=== PATIENT | female | born 1945 | race Caucasian/White ===

== ENCOUNTER 2023-12-23 15:47 | Emergency (ER) | payer MEDICARE, MEDICAID, SELFPAY ==
[2023-12-23 16:27] VITALS: BP 126/73; PULSE 102; RESP 18; TEMP 36.4; O2SAT 92
--- NOTE | 2023-12-23 18:36 | PC.NURSE ---
up to desk. stating he needs to get pt back to shelter. states her anxiety level is too high. pt assisted into vehicle
== END 2023-12-23 18:46 | disposition left against medical advice (07) ==
PROVIDERS: PCP Family Medicine
DX: R06.9 Unspecified abnormalities of breathing (principal)
CPT/HCPCS: 99199

== ENCOUNTER 2024-06-14 12:10 | Inpatient (IN) | payer MEDICARE, MEDICAID, SELFPAY ==
--- NOTE | ~2024-06-14 | XR_ITS ---
EXAMINATION: XR barium swallow modified DATE: 06/15/2024 14:07 INDICATION: Dysphagia. TECHNIQUE: The patient was given barium-containing material of multiple consistencies to swallow by t he speech pathologist while I performed fluoroscopy. Fluoroscopy exposure time was 1.1 minutes. The n umber of fluoroscopy images saved to the PACS was 1. Dose-area product was 0.779 Gy-cm^2. FINDINGS: There is reduced laryngeal elevation, reduced tongue base retraction, and laryngeal penetration. IMPRESSION: 1. Laryngeal penetration. 2. Please refer to the speech therapy report for recommendations. Reviewed, dictated and finalized at location A.
--- NOTE | ~2024-06-14 | XR_ITS ---
Portable chest x-ray Comparison: None Clinical History: Status post fall Findings: Lungs are clear, without focal consolidation or pleural effusion. Cardiomediastinal silho uette is unremarkable. Bones and soft tissues are unremarkable. Impression: Clear lungs. Reviewed, dictated and finalized at location M. Impression: Clear lungs.
--- NOTE | ~2024-06-14 | CT_ITS ---
CT head without contrast Indication: Head injury Technique: Serial scans were obtained through the brain without the administration of contrast. Dose reduction technique was used on this scan by utilizing automated exposure control and iterative recon struction technique. The dose-length product (DLP) was 605.33 mGy-cm. Findings: There is no evidence of intracranial hemorrhage, mass lesion, or acute infarct. The ventri cles and subarachnoid spaces are dilated, consistent with moderate to severe atrophy. Low attenuatio n regions are seen within the periventricular white matter bilaterally, likely representing changes f rom chronic microvascular ischemic disease. There is no evidence of edema, mass effect or midline sh ift. The visualized paranasal sinuses and mastoid air cells are clear. Focal soft tissue swelling no mariam in the frontal scalp. Probable acute left nasal bone fracture. Impression: No intracranial hemorrhage, mass, or acute infarct. Atrophy and chronic white matter changes, as above. Probable acute left nasal bone fracture. Reviewed, dictated and finalized at location . Impression: No intracranial hemorrhage, mass, or acute infarct. Atrophy and chronic white matter changes, as above. Probable acute left nasal bone fracture.
--- NOTE | ~2024-06-14 | CT_ITS ---
EXAMINATION: CT facial & cervical spine wo DATE: 06/14/2024 13:18 INDICATION: Head injury. TECHNIQUE: Computed tomography (CT) of the maxillofacial region and cervical spine was performed with out intravenous contrast. Automated exposure control and iterative reconstruction technique were empl oyed. The dose-length product was 141.26 mGy-cm. COMPARISON: None FINDINGS: MAXILLOFACIAL CT: There is frontal scalp soft tissue swelling. There are likely changes of ocular lens replacement surg eries. There are fractures of the nasal bones. There is rightward deviation of the nasal septum. Ther e is mild mucosal thickening in the paranasal sinuses. CERVICAL SPINE CT: There is mild scarring at the lung apices. There is 8 degrees dextrocurvature of cervical spine. Ther e is 2 mm retrolisthesis of C4 on C5. Vertebral body heights are normal. There is severely decreased disc height at C4-C5. There is interbody fusion at C5-C6. There is severely decreased disc height at C6-C7. The following disc levels are specifically discussed: C2-C3: There is no uncovertebral joint osteoarthritis. There is mild bilateral facet joint osteoarthr itis. There is no neural foraminal stenosis. There is no central canal stenosis. C3-C4: There is mild right and moderate left uncovertebral joint osteoarthritis. There is mild right and moderate left facet joint osteoarthritis. There is mild left neural foraminal stenosis. There is no central canal stenosis. C4-C5: There is severe bilateral uncovertebral joint osteoarthritis. There is severe bilateral facet joint osteoarthritis. There is mild bilateral neural foraminal stenosis. There is mild central canal stenosis. C5-C6: There is no uncovertebral joint hypertrophy. There is ankylosis of the facet joints without hy pertrophy. There is no neural foraminal stenosis. There is no central canal stenosis. C6-C7: There is ankylosis of the uncovertebral joints with moderate hypertrophy. There is moderate bi lateral facet joint osteoarthritis. There is mild bilateral neural foraminal stenosis. There is mild central canal stenosis. C7-T1: There is no uncovertebral joint osteoarthritis. There is moderate right and severe left facet joint osteoarthritis. There is mild left neural foraminal stenosis. There is no central canal stenosi s. IMPRESSION: 1. Fractures of the nasal bones. 2. Severe cervical spondylosis. Reviewed, dictated and finalized at location A.
[2024-06-14 12:10] VITALS: BP 117/67; TEMP 36.8
--- NOTE | 2024-06-14 12:36 | ECG_ITS ---
Test Date: 2024-06-14 12:38:00 Measurements Intervals [place] Rate: 77 P: 97 SC: 140 QRS: 67 QRSD: 93 T: 81 QT: 383 QTc: 434 Interpretive Statements SINUS RHYTHM WITHIN NORMAL LIMITS No previous ECG available for comparison Electronically Signed On 06-14-2024 15:06:20 CDT by Leonard Roman M.D.
--- NOTE | 2024-06-14 12:58 | ED.DIZZY ---
HPI - Dizziness General Chief Complaint: Fall Stated Complaint: fall - forehead & lip lac Time Seen by Provider: 06/14/24 12:12 Source: patient Limitations: dementia History of Present Illness HPI Narrative: This is a 78-year-old female with PMH of Alzheimer's dementia who [facility] for unwitnessed fall. Staff are unsure what happened or when the fall took place. They are unsure of any known LOC. The patient does not take blood thinners. She has a history of Alzheimer's and appears to be in her baseline which is alert oriented times 1-2. She has suffered a head injury with laceration to the upper lip and forehead but patient is unable to contribute meaningful history. Related Data Home Medications Medication Instructions Recorded Confirmed acetaminophen 300 mg-codeine 15 mg 1 tablet PO Q6H PRN Pain 06/14/24 06/14/24 tablet citalopram 10 mg tablet (Celexa) 10 mg PO DAILY 06/14/24 06/14/24 clonidine HCl 0.1 mg tablet 0.1 mg PO BID 06/14/24 06/14/24 divalproex 250 mg tablet,delayed 250 mg PO Q8H 06/14/24 06/14/24 release (Depakote) docusate sodium 100 mg tablet 100 mg PO DAILY 06/14/24 06/14/24 lactulose 10 gram/15 mL oral 15 ml PO QID PRN Constipation 06/14/24 06/14/24 solution levothyroxine 100 mcg tablet 100 mcg PO DAILY 06/14/24 06/14/24 megestrol 625 mg/5 mL (125 mg/mL) 5 ml PO DAILY 06/14/24 06/14/24 oral suspension mirtazapine 15 mg tablet 15 mg PO HS 06/14/24 06/14/24 Allergies Allergy/AdvReac Type Severity Reaction Status Date / Time aspirin Allergy Palpitation Verified 06/14/24 13:42 s azithromycin Allergy Hallucinati Verified 06/14/24 13:42 ng ciprofloxacin Allergy Unknown Verified 06/14/24 13:42 donepezil [From Aricept] Allergy Unknown Verified 06/14/24 13:42 memantine Allergy Gastrointestinal Verified 06/14/24 13:42 Upset meperidine Allergy Hallucinati Verified 06/14/24 13:42 ng pentazocine Allergy Unknown Verified 06/14/24 13:42 Review of Systems Review of Systems: All systems as dictated in [facility] Past Medical History Medical History Abnormality of gait Alzheimer's dementia Hypothyroidism (acquired) MDD (major depressive disorder) Family History Family History (Updated 06/14/24 @ 17:12 by Kelli Douglass RN) Mother Alzheimer dementia Social History Social History Smoking status: Never smoker Alcohol intake: never Substance use: never Spiritual care concerns: No Exam Narrative: GENERAL: Well-appearing, well-nourished, and in no acute distress. HEAD: Normocephalic, atraumatic. EYES: PERRLA and EOMI. ENT: Nares clear, no rhinorrhea or epistaxis. Mucous membranes moist. Oropharynx without tonsillar hypertrophy exudate or other lesions. NECK: Supple. No adenopathy or masses. CHEST: No respiratory distress. Clear to auscultation. No wheezes rales or rhonchi HEART: Regular rate and rhythm. No murmur heard. Normal peripheral pulses. ABDOMEN: Soft, nontender, nondistended, normal active bowel sounds. MSK: Normal range of motion. No edema. SKIN: Small, superficial 1 cm laceration to the skin of the upper lip. Abuts the vermilion border does not cross over. No mucosal surface laceration. Additional 3 cm superficial laceration noted to the central forehead, vertically oriented. Minimal active bleeding. NEURO: Alert and oriented x1-2, and at baseline. No focal deficits. moves all 4 extremities spontaneously. Answers some simple questions appropriately but overall this is very limited PSYCH: Normal mood and affect. Course Vital Signs Vital signs: Vital Signs Temperature 98.2 F 06/14/24 12:10 Blood Pressure 117/67 06/14/24 12:10 Temperature 98.5 F 06/14/24 16:31 Pulse Rate 84 06/14/24 16:31 Respiratory Rate 16 06/14/24 16:31 Blood Pr
[2024-06-14 12:59] VITALS: BP 138/70; PULSE 80; RESP 19; O2SAT 100
[2024-06-14 13:02] LABS: Basophils Absolute Auto 0.1 K/mm3 (0.0-0.1); Basophils Percent Auto 0.5 % (0.2-1.2); Eosinophils Absolute Auto 0.1 K/mm3 (0-0.3); Eosinophils Percent Auto 0.5 % (0-4.4); Hematocrit 40.6 % (37.0-47.0); Hemoglobin 13.6 g/dL (12.0-15.0); Immature Granulocyte Absolute 0.22 K/mm3 (0.00-0.031); Immature Granulocyte Percent A 1.7 % (0-0.5); Lymphocytes Absolute Auto 3.75 K/mm3 (0.9-3.2); Lymphocytes Percent Auto 28.4 % (18.3-44.2); Mean Corpuscular HGB Conc 33.5 g/dl (32-36); Mean Corpuscular Hemoglobin 31.5 pg (26-34); Mean Platelet Volume 9.8 fl (7.4-10.4); Monocytes Absolute Auto 0.8 K/mm3 (0.1-0.6); Monocytes Percent Auto 5.9 % (2.6-8.5); Neutrophils Absolute Auto 8.3 K/mm3 (1.3-6.7); Platelet Count Result 344 k/mm3 (150-375); Red Blood Count 4.32 M/mm3 (4.2-5.4); Red Cell Distribution Width 13.4 % (11.5-14.5); White Blood Count 13.2 K/mm3 (4.5-10.0)
[2024-06-14 13:13] LABS: Alanine Aminotransferase 10 U/L (6-35); Albumin Level 3.9 g/dL (3.5-5.1); Alkaline Phosphatase 45 U/L (38-126); Anion Gap 11 mmol/L (4-12); Aspartate Amino Transferase 23 U/L (14-36); Bilirubin,Total 0.8 mg/dL (0.2-1.3); Blood Urea Nitrogen 22 mg/dL (7-17); Calcium 8.9 mg/dL (8.4-10.2); Carbon Dioxide 25 mmol/L (22-30); Chloride 106 mmol/L (98-107); Estimated CRCL calculation 53 ml/min; Estimated Glomerular Filt Rate > 60; Glucose 94 mg/dL (65-110); INR 0.9; Potassium 4.7 mmol/L (3.4-5.0); Prothrombin Time 12.7 Seconds (11.1-14.7); Sodium 142 mmol/L (137-145)
[2024-06-14 13:18] LABS: Add Urine Microscopic? YES; Appearance Urine Cloudy (Clear); Bacteria Urine 4+ /hpf; Bilirubin Urine Negative (Negative); Blood Urine Negative (Negative); Color Urine Yellow (Yellow); Glucose Urine UA Negative (Negative); Ketones Urine Trace mg/dL (Negative); Leukocyte Esterase Ur 1+ LEU/UL (Negative); Need Manual Microscopic Reviewed; Nitrate Urine Positive (Negative); Non Pathogenic Casts 0-2; Protein Urine Trace mg/dL (Negative); RBC Urine 51-100 /hpf (0-2); Specific Grav Ur 1.018 (1.001-1.035); Squamous Epithelial Cell Urine Occasional /hpf (Few); WBC Urine 51-100 /hpf (0-3); pH Urine 7.5 (5.0-9.0)
[2024-06-14 13:22] LABS: Amorphous Sediment Urine Moderate
[2024-06-14 13:24] LABS: Troponin I < 0.012 ng/mL (0.000-0.034)
[2024-06-14 14:00] VITALS: BP 136/60; PULSE 77; RESP 18; O2SAT 100
--- NOTE | 2024-06-14 14:43 | PM.IMHP ---
H&P: HPI History of Present Illness Date/Time: 06/14/24 14:43 Chief Complaint: Fall Narrative: 78 y/o F presents here with ground-level fall with PMH of dementia/Alzheimer's, hypothyroidism, and depression. The patient presents here from [facility] via EMS for further evaluation post-unwitnessed ground-level fall. Per report EMS, [facility] staff was unsure when fall took place. Family at bedside ( and daughter) report that they were told she was found next to her wheelchair and appeared to have slid out of it onto her left side with suspected head strike given laceration to forehead and lip. Patient has Alzheimer's with a baseline mentation of alert and orientated x1-2. Arrived to the emergency department A&Ox1-2. Patient is not on anticoagulation. They report she also has difficulty in the evening and will become frustrated/agitated with occasional physical component. Report she responds well to patience/redirection. Initial VS at presentation: 98.2? F, HR 80, RR 19, 117/67, and 100% on RA. ED workup showed: WBC 13.2, normal coags, no significant electrolyte derangements, creatinine 0.7 and GFR >60, initial troponin negative, and UA consistent with UTI. Head CT, C-spine CT, and CXR completed and showed a nasal bone fracture, otherwise no acute findings. Review of Systems Review of Systems: ROS unobtainable: Yes unobtainable due to mental status PMFSH Past Medical History Medical History Abnormality of gait Alzheimer's dementia Hypothyroidism (acquired) MDD (major depressive disorder) Family History Family History (Updated 06/14/24 @ 17:12 by Kelli Douglass RN) Mother Alzheimer dementia Social History Social History Smoking status: Never smoker Alcohol intake: never Substance use: never Spiritual care concerns: No Meds Home Medications and Allergies Home Medications Medication Instructions Recorded Confirmed Type acetaminophen 300 mg-codeine 15 mg 1 tablet PO Q6H PRN Pain 06/14/24 06/14/24 History tablet citalopram 10 mg tablet (Celexa) 10 mg PO DAILY 06/14/24 06/14/24 History clonidine HCl 0.1 mg tablet 0.1 mg PO BID 06/14/24 06/14/24 History divalproex 250 mg tablet,delayed 250 mg PO Q8H 06/14/24 06/14/24 History release (Depakote) docusate sodium 100 mg tablet 100 mg PO DAILY 06/14/24 06/14/24 History lactulose 10 gram/15 mL oral 15 ml PO QID PRN Constipation 06/14/24 06/14/24 History solution levothyroxine 100 mcg tablet 100 mcg PO DAILY 06/14/24 06/14/24 History megestrol 625 mg/5 mL (125 mg/mL) 5 ml PO DAILY 06/14/24 06/14/24 History oral suspension mirtazapine 15 mg tablet 15 mg PO HS 06/14/24 06/14/24 History Allergies Allergy/AdvReac Type Severity Reaction Status Date / Time aspirin Allergy Palpitation Verified 06/14/24 13:42 s azithromycin Allergy Hallucinati Verified 06/14/24 13:42 ng ciprofloxacin Allergy Unknown Verified 06/14/24 13:42 donepezil [From Aricept] Allergy Unknown Verified 06/14/24 13:42 memantine Allergy Gastrointestinal Verified 06/14/24 13:42 Upset meperidine Allergy Hallucinati Verified 06/14/24 13:42 ng pentazocine Allergy Unknown Verified 06/14/24 13:42 Vital Signs Vital Signs - 24 hr 06/14/24 12:10 06/14/24 12:59 Temperature 98.2 F Pulse Rate 80 Respiratory Rate 19 Blood Pressure 117/67 138/70 Pulse Oximetry 100 Exam Const: General: comfortable and no acute distress Other: , female, elderly, frail HENMT: Face/Nose/Sinus: Normal nares present Mouth: Yes moist mucous membranes Other: small 1 cm laceration with steri-strip in place to lip, does not cross vermilion border Eyes: General: appearance normal, both eyes and all related structures Sclera: sclerae normal Pupils: Equal, round and reactive pupils present EOM: EOMs intact bila
[2024-06-14] MEDS: MORPHINE SULFATE (*CRX) 2 MG/ML INJ IV PUSH (14:54)
[2024-06-14 15:35] VITALS: BP 140/68; PULSE 78; RESP 18; TEMP 36.7; O2SAT 99
--- NOTE | 2024-06-14 16:25 | ADMGEN ---
This patient, Chela Carney, was admitted to Medical Room 255-. Patient/family oriented to hospital policies and general routines including ID bracelet, bed and alarms, visiting hours, pain management, procedures, bathroom and other care routines, personal items, smoking policy, room service/diet, and visiting hours. Information on how to activate the Rapid Response Team has been discussed. Patient/Family are encouraged to report perceived risks to care and to ask questions if they do not understand what they are told or what they should do.
[2024-06-14 16:31] VITALS: BP 146/62; PULSE 84; RESP 16; TEMP 36.9; O2SAT 100
[2024-06-14] MEDS: LACTATED RINGERS 1,000 ML 75 ML IV CONT (16:35)
[2024-06-14 17:13] VITALS: BMI 19.9
[2024-06-14 20:46] VITALS: BP 142/65; PULSE 101; RESP 18; TEMP 36.5; O2SAT 96
[2024-06-14] MEDS: cloNIDine HCL 0.1 MG TABLET PO (21:06)
[2024-06-14] MEDS: DIVALPROEX SODIUM DR 250 MG TABEC PO (21:06)
[2024-06-14] MEDS: MIRTAZAPINE 15 MG TABLET PO (21:06)
[2024-06-15 04:46] VITALS: BP 114/50; PULSE 66; RESP 18; TEMP 36.5; O2SAT 93
[2024-06-15 04:51] LABS: Basophils Absolute Auto 0.1 K/mm3 (0.0-0.1); Basophils Percent Auto 0.6 % (0.2-1.2); Eosinophils Absolute Auto 0.1 K/mm3 (0-0.3); Eosinophils Percent Auto 0.7 % (0-4.4); Hematocrit 37.3 % (37.0-47.0); Hemoglobin 11.8 g/dL (12.0-15.0); Immature Granulocyte Absolute 0.08 K/mm3 (0.00-0.031); Lymphocytes Absolute Auto 2.02 K/mm3 (0.9-3.2); Mean Corpuscular HGB Conc 31.6 g/dl (32-36); Mean Corpuscular Hemoglobin 30.6 pg (26-34); Mean Corpuscular Volume 96.6 fl (80-100); Mean Platelet Volume 9.6 fl (7.4-10.4); Monocytes Absolute Auto 0.6 K/mm3 (0.1-0.6); Monocytes Percent Auto 7.4 % (2.6-8.5); Neutrophils Absolute Auto 5.3 K/mm3 (1.3-6.7); Neutrophils Percent Auto 65.3 % (45.5-73.1); Platelet Count Result 250 k/mm3 (150-375); Red Blood Count 3.86 M/mm3 (4.2-5.4); Red Cell Distribution Width 13.5 % (11.5-14.5); White Blood Count 8.1 K/mm3 (4.5-10.0)
[2024-06-15 05:00] LABS: Anion Gap 9 mmol/L (4-12); Blood Urea Nitrogen 18 mg/dL (7-17); Calcium 8.2 mg/dL (8.4-10.2); Carbon Dioxide 24 mmol/L (22-30); Chloride 103 mmol/L (98-107); Estimated CRCL calculation 62 ml/min; Estimated Glomerular Filt Rate > 60; Glucose 89 mg/dL (65-110); Potassium 4.4 mmol/L (3.4-5.0); Sodium 136 mmol/L (137-145)
[2024-06-15] MEDS: LACTATED RINGERS 1,000 ML 75 ML IV CONT ×2 (05:28→20:29)
[2024-06-15] MEDS: LEVOTHYROXINE SODIUM 100 MCG TABLET PO (06:09)
[2024-06-15] MEDS: DIVALPROEX SODIUM SPRINKLE 125 MG CAP.DR 250 MG PO ×3 (06:09→20:30)
--- NOTE | 2024-06-15 07:31 | PM.IMPN ---
Progress Note: A&P Assessment and Plan (1) UTI (urinary tract infection): Code(s): N39.0 - Urinary tract infection, site not specified Status: Acute Assessment and Plan: Does not meet SIRS criteria - UA: Cloudy, trace ketones, + nitrates, 1+ leuks, 51-100 WBC, 51-100 RBC, moderate amorphous sediment, 4+ bacteria, and occasional epithelial cells. - UC collected on 06/14: pending - No previous micro to be reviewed - started on Ceftriaxone on 06/14 - IV fluids - trend labs (2) Ground-level fall: Code(s): W18.30XA - Fall on same level, unspecified, initial encounter Status: Acute Assessment and Plan: Unwitnessed, suspected ground level fall from wheelchair with head strike given lacerations to the forehead and lip. Suspect fall may be multifactorial: dementia, acute UTI, deconditioning - lacerations repaired with steristrips, suturing, and dermabond. monitor sites - Head CT: No intracranial hemorrhage, mass, or acute infarct.Probable acute left nasal bone fracture. - Head/c spine/facial bones CT: fractures of the nasal bones and severe cervical spondylosis - Chest XR: No acute cardiopulmonary process - Fall precautions (3) Hypothyroidism: Code(s): E03.9 - Hypothyroidism, unspecified Status: Acute Assessment and Plan: Chronic, continue home medication. - Synthroid 100 mcg daily (4) Primary degenerative dementia of the Alzheimer type, senile onset, with depression: Code(s): G30.1 - Alzheimer's disease with late onset; F02.83 - Dementia in other diseases classified elsewhere, unspecified severity, with mood disturbance Status: Acute Assessment and Plan: Per chart review patient is baseline AOx1-2. Plan Diet: Regular GI Prophylaxis: Not currently indicated DVT Prophylaxis: SCDs Lines: Peripheral Code Status: DNR Time Spent With Patient Time with patient: 25 - 35 minutes Subjective Date/time seen: 06/15/24 07:31 Interval history: 78 year old female with past medical history of dementia/Alzheimer, hypothyroidism and depression presents to the hospital from [facility] following a ground level fall. On first assessment, patient is lying in bed.She responds to voice but does not answer any questions. at bedside says that this is normal for her. He states that she will intermittently stop responding. Returned to patients room following the swallow study. Per and daughter patient became much more alert for the imaging and has since started to sleep again. During assessment patient is AOx1 (person). She denies any chest pain, shortness of breath, abdominal pain, nausea/vomiting. While PCT was changing patient she opened her eyes and moved upper extremities. Review of Systems Review of Systems: All systems reviewed & are unremarkable except as noted in HPI and below Exam Narrative: AF HR 66 RR 14 SpO2 100 BP 100/54 General: frail female in no acute respiratory distress who is nontoxic appearing, lying semi recumbent in bed. HEENT: Normocephalic. Atraumatic. No facial asymmetry. Chest: Lungs are clear but diminished to auscultation bilaterally. No wheezes or crackles. CV: Heart was regular rate and rhythm. S1-S2. No murmurs, gallops, or rubs. Abd: Abdomen was soft. Nontender. Nondistended. Positive bowel sounds. No organomegaly or masses. Ext: No clubbing, cyanosis, or edema. 2+ DP pulses bilaterally. Neuro: Patient is alert and oriented x1 (person, baseline 1-2). Objective Data Vital Signs Vital Signs: Vital Signs - 24 hr 06/14/24 12:10 06/14/24 12:59 06/14/24 15:35 Temperature 98.2 F 98.1 F Pulse Rate 80 78 Respiratory Rate 19 18 Blood Pressure 117/67 138/70 140/68 Pulse Oximetry 100 99 Oxygen Delivery 06/14/24 14:00 06/14/24 16:31 06/14/24 17:29 Temperature 98.5 F Pulse Rate 77 84 Respiratory Rate 18 16 Blood Pressure 136/60 146/62 H Pulse Oximetry 100 100 Oxygen Delivery Room A
--- NOTE | 2024-06-15 11:13 | PCSTNOTE ---
Please refer to the Bedside Swallow Evaluation in the EMR. Please note, silent aspiration cannot be ruled out at bedside. Patient seen for bedside swallow evaluation with her family present. Family reported she had MBS some years ago and has had a history of trouble with swallowing pills. Overall, this has resolved and she does well with a puree diet. Chela vocalized when talked to but never opened her eyes. She was sitting upright in bed and was cooperative to take swallows of chocolate milk when straw was presented. She took two long drinks with good swallow initiation and laryngeal elevation but presented with a delayed cough x2. MBS is recommended to further assess swallow function. Family and nsg agreed to this recommendation. MBS will be completed upon doctor's order.
[2024-06-15 14:00] VITALS: BP 100/54; PULSE 66; RESP 14; TEMP 36.5; O2SAT 100
--- NOTE | 2024-06-15 14:12 | REHSTMBS ---
Assessment and note entered by Lena Willingham, MA[employer] Modified Barium Swallow Evaluation Feeding Type Recommended Oral Food Consistency Pureed, Level 4 Liquid Consistency Thin (0) ST Clinical Summary The patient was seated for a lateral view and presented with 5cc of thin liquid barium via a spoon, pudding consistency barium via a spoon and an uncontrolled thin liquid barium bolus via straw . During the oral stages the patient was unsure how to manage liquid from a spoon so lost bolus with anterior spillage. Family reported she would not be able to manage a cracker or solids since she doesn't swallow but tolerates puree consistency well. Straw presentation of liquid allowed for successful drinks of thin liquid. During the pharyngeal stage, reduced laryngeal elevation was exhibited as evidenced by laryngeal penetration during the swallow which occurred inconsistently throughout all trials. All penetrated contents were cleared from laryngeal vestibule without any instances of aspiration. Impressions: Mild oral stage dysphagia Recommendations:1:1 supervision during all oral intake; position pt upright in order to prevent any instances of aspiration and encourage dry swallows (present clean spoon) after meals to facilitate cleared residual material in pharyngeal area.
[2024-06-15] MEDS: MEGESTROL ACETATE (*CHEMO) ORAL SUSP 40 MG/ML SYR 625 MG PO (14:23)
[2024-06-15] MEDS: cloNIDine HCL 0.1 MG TABLET PO (14:23)
[2024-06-15] MEDS: CITALOPRAM HYDROBROMIDE 10 MG TABLET PO (14:23)
[2024-06-15 20:00] VITALS: PULSE 68; RESP 16; O2SAT 98
[2024-06-15 20:16] VITALS: BP 98/47; PULSE 68; RESP 16; TEMP 36.4; O2SAT 98
[2024-06-15] MEDS: MIRTAZAPINE 15 MG TABLET PO (20:30)
[2024-06-15] MEDS: ACETAMINOPHEN/CODEINE (*CRX) 300/30 MG TABLET 1 TAB PO (20:30)
[2024-06-16 04:33] VITALS: BP 117/67; PULSE 65; RESP 18; TEMP 36.6; O2SAT 98
[2024-06-16] MEDS: DIVALPROEX SODIUM SPRINKLE 125 MG CAP.DR 250 MG PO ×3 (06:32→20:07)
[2024-06-16] MEDS: LEVOTHYROXINE SODIUM 100 MCG TABLET PO (06:32)
[2024-06-16 08:25] LABS: Alanine Aminotransferase 11 U/L (6-35); Alkaline Phosphatase 48 U/L (38-126); Anion Gap 5 mmol/L (4-12); Aspartate Amino Transferase 45 U/L (14-36); Bilirubin,Total 0.7 mg/dL (0.2-1.3); Blood Urea Nitrogen 16 mg/dL (7-17); Calcium 8.3 mg/dL (8.4-10.2); Carbon Dioxide 29 mmol/L (22-30); Chloride 100 mmol/L (98-107); Estimated CRCL calculation 54 ml/min; Estimated Glomerular Filt Rate > 60; Glucose 83 mg/dL (65-110); Potassium 4.6 mmol/L (3.4-5.0); Sodium 134 mmol/L (137-145)
[2024-06-16 08:44] LABS: Basophils Percent Auto 0.4 % (0.2-1.2); Eosinophils Absolute Auto 0.1 K/mm3 (0-0.3); Eosinophils Percent Auto 0.9 % (0-4.4); Hematocrit 35.4 % (37.0-47.0); Hemoglobin 11.3 g/dL (12.0-15.0); Immature Granulocyte Absolute 0.12 K/mm3 (0.00-0.031); Immature Granulocyte Percent A 1.7 % (0-0.5); Lymphocytes Absolute Auto 1.98 K/mm3 (0.9-3.2); Lymphocytes Percent Auto 28.7 % (18.3-44.2); Mean Corpuscular HGB Conc 31.9 g/dl (32-36); Mean Corpuscular Hemoglobin 30.9 pg (26-34); Mean Corpuscular Volume 96.7 fl (80-100); Monocytes Absolute Auto 0.5 K/mm3 (0.1-0.6); Monocytes Percent Auto 7.1 % (2.6-8.5); Neutrophils Absolute Auto 4.2 K/mm3 (1.3-6.7); Neutrophils Percent Auto 61.2 % (45.5-73.1); Platelet Count Result 250 k/mm3 (150-375); Red Blood Count 3.66 M/mm3 (4.2-5.4); Red Cell Distribution Width 13.8 % (11.5-14.5); White Blood Count 6.9 K/mm3 (4.5-10.0)
[2024-06-16 09:19] VITALS: BP 107/61; PULSE 65; RESP 18; O2SAT 92
[2024-06-16] MEDS: DOCUSATE SODIUM LIQ 100 MG/10 ML UDC PO (09:22)
[2024-06-16] MEDS: CITALOPRAM HYDROBROMIDE 10 MG TABLET PO (09:22)
[2024-06-16] MEDS: MEGESTROL ACETATE (*CHEMO) ORAL SUSP 40 MG/ML SYR 625 MG PO (09:22)
--- NOTE | 2024-06-16 11:04 | PCPTNOTE ---
per pt's spouse, pt is dependent for mobility and ADLs, at the alf she is lifted to a wheelchair via the staff, has not stood or used a walker since October 2023, pt not appropriate for physical therapy, DC'ing orders
[2024-06-16 14:00] VITALS: BP 98/48; PULSE 97; RESP 24; TEMP 37.1; O2SAT 100
--- NOTE | 2024-06-16 15:02 | PM.IMPN ---
Progress Note: A&P Assessment and Plan (1) UTI (urinary tract infection): Code(s): N39.0 - Urinary tract infection, site not specified Status: Acute Assessment and Plan: Does not meet SIRS criteria - UA: Cloudy, trace ketones, + nitrates, 1+ leuks, 51-100 WBC, 51-100 RBC, moderate amorphous sediment, 4+ bacteria, and occasional epithelial cells. - UC collected on 06/14: gram negative bacilli - No previous micro to be reviewed - started on Ceftriaxone on 06/14 - IV fluids - trend labs (2) Ground-level fall: Code(s): W18.30XA - Fall on same level, unspecified, initial encounter Status: Acute Assessment and Plan: Unwitnessed, suspected ground level fall from wheelchair with head strike given lacerations to the forehead and lip. Suspect fall may be multifactorial: dementia, acute UTI, deconditioning - lacerations repaired with steristrips, suturing, and dermabond. monitor sites - Head CT: No intracranial hemorrhage, mass, or acute infarct.Probable acute left nasal bone fracture. - Head/c spine/facial bones CT: fractures of the nasal bones and severe cervical spondylosis - Chest XR: No acute cardiopulmonary process - Fall precautions (3) Hypothyroidism: Code(s): E03.9 - Hypothyroidism, unspecified Status: Acute Assessment and Plan: Chronic, continue home medication. - Synthroid 100 mcg daily (4) Primary degenerative dementia of the Alzheimer type, senile onset, with depression: Code(s): G30.1 - Alzheimer's disease with late onset; F02.83 - Dementia in other diseases classified elsewhere, unspecified severity, with mood disturbance Status: Acute Assessment and Plan: Per chart review patient is baseline AOx1-2. Plan Diet: Regular GI Prophylaxis: Not currently indicated DVT Prophylaxis: SCDs Lines: Peripheral Code Status: DNR Time Spent With Patient Time with patient: 25 - 35 minutes Subjective Date/time seen: 06/16/24 15:02 Interval history: 78 year old female with past medical history of dementia/Alzheimer, hypothyroidism and depression presents to the hospital from [facility] following a ground level fall. Patient is more alert today, opening her eyes and mumbling. She seems more agitated at time of assessment. Her urine culture is growing gram - bacilli. She remains on Rocephin at this time. Per RN patient has had decrease in nutritional intake. She is a chronic feeder at the facility. Will discuss with family in tomorrow. Review of Systems Review of Systems: ROS unobtainable: Yes unobtainable due to mental status Exam Narrative: AF HR 65 RR 18 SpO2 92 BP 107/61 General: frail female in no acute respiratory distress who is nontoxic appearing, lying semi recumbent in bed. HEENT: Normocephalic. Vertical laceration to the center forehead with steristrips in place. Small laceration to the upper lip with steristrip in place. Does not touch the jose border. No facial asymmetry. Chest: Lungs are clear but diminished to auscultation bilaterally. No wheezes or crackles. CV: Heart was regular rate and rhythm. S1-S2. No murmurs, gallops, or rubs. Abd: Abdomen was soft. Nontender. Nondistended. Positive bowel sounds. No organomegaly or masses. Ext: No clubbing, cyanosis, or edema. 2+ DP pulses bilaterally. Neuro: Patient is alert, seems increasingly agitated. Not answering questions but mumbling. Objective Data Vital Signs Vital Signs: Vital Signs - 24 hr 06/15/24 20:16 06/15/24 20:00 06/16/24 04:33 Temperature 97.6 F 97.8 F Pulse Rate 68 68 65 Respiratory Rate 16 16 18 Blood Pressure 98/47 L 117/67 Pulse Oximetry 98 98 98 Oxygen Delivery Room Air 06/16/24 09:19 06/16/24 09:22 06/16/24 14:00 Temperature 98.8 F Pulse Rate 65 97 Respiratory Rate 18 24 H Blood Pressure 107/61 98/48 L Pulse Oximetry 92 100 Oxygen Delivery Room Air Intake/Output Intake/Output: Intake & Output 06/13/24 08/0
[2024-06-16] MEDS: LACTATED RINGERS 1,000 ML 75 ML IV CONT ×2 (15:40→20:07)
[2024-06-16 19:46] VITALS: BP 128/56; PULSE 89; RESP 20; TEMP 36.5; O2SAT 96
[2024-06-16 20:00] VITALS: PULSE 89; RESP 20; O2SAT 96
[2024-06-16] MEDS: MIRTAZAPINE 15 MG TABLET PO (20:07)
[2024-06-16] MEDS: ACETAMINOPHEN/CODEINE (*CRX) 300/30 MG TABLET 1 TAB PO (20:07)
[2024-06-17 05:37] LABS: Basophils Percent Auto 0.5 % (0.2-1.2); Eosinophils Absolute Auto 0.1 K/mm3 (0-0.3); Hematocrit 37.3 % (37.0-47.0); Hemoglobin 11.9 g/dL (12.0-15.0); Immature Granulocyte Absolute 0.05 K/mm3 (0.00-0.031); Immature Granulocyte Percent A 0.8 % (0-0.5); Lymphocytes Absolute Auto 1.97 K/mm3 (0.9-3.2); Lymphocytes Percent Auto 31.8 % (18.3-44.2); Mean Corpuscular HGB Conc 31.9 g/dl (32-36); Mean Corpuscular Hemoglobin 31.5 pg (26-34); Mean Corpuscular Volume 98.7 fl (80-100); Mean Platelet Volume 9.8 fl (7.4-10.4); Monocytes Absolute Auto 0.4 K/mm3 (0.1-0.6); Monocytes Percent Auto 5.8 % (2.6-8.5); Neutrophils Absolute Auto 3.7 K/mm3 (1.3-6.7); Neutrophils Percent Auto 60.1 % (45.5-73.1); Platelet Count Result 259 k/mm3 (150-375); Red Blood Count 3.78 M/mm3 (4.2-5.4); Red Cell Distribution Width 13.6 % (11.5-14.5); White Blood Count 6.2 K/mm3 (4.5-10.0)
[2024-06-17 05:47] LABS: Alanine Aminotransferase 12 U/L (6-35); Albumin Level 3.2 g/dL (3.5-5.1); Alkaline Phosphatase 46 U/L (38-126); Anion Gap 7 mmol/L (4-12); Aspartate Amino Transferase 47 U/L (14-36); Bilirubin,Total 0.9 mg/dL (0.2-1.3); Blood Urea Nitrogen 13 mg/dL (7-17); Calcium 8.5 mg/dL (8.4-10.2); Carbon Dioxide 26 mmol/L (22-30); Chloride 103 mmol/L (98-107); Estimated CRCL calculation 48 ml/min; Estimated Glomerular Filt Rate > 60; Glucose 91 mg/dL (65-110); Potassium 5.3 mmol/L (3.4-5.0); Sodium 136 mmol/L (137-145)
[2024-06-17 05:51] VITALS: BP 111/53; PULSE 75; RESP 18; TEMP 36.3; O2SAT 96
[2024-06-17] MEDS: LEVOTHYROXINE SODIUM 100 MCG TABLET PO (06:18)
[2024-06-17] MEDS: DIVALPROEX SODIUM SPRINKLE 125 MG CAP.DR 250 MG PO ×2 (06:18→13:13)
[2024-06-17] MEDS: cefTRIAXone 2 GM/NS 100 ML 2 GM/100 ML BAG IVPB (09:43)
--- NOTE | 2024-06-17 13:32 | PM.DS ---
DS: Admitting Diagnosis Discharge Date 06/17/2024 Admitting Diagnosis Urinary tract infection Ground level fall Hypothyroidism Primary degenerative dementia of the Alzheimer-type, senile onset DS: Discharge Diagnosis Discharge Diagnosis (1) UTI (urinary tract infection): Code(s): N39.0 - Urinary tract infection, site not specified Status: Acute (2) Ground-level fall: Code(s): W18.30XA - Fall on same level, unspecified, initial encounter Status: Acute (3) Hypothyroidism: Code(s): E03.9 - Hypothyroidism, unspecified Status: Acute (4) Primary degenerative dementia of the Alzheimer type, senile onset, with depression: Code(s): G30.1 - Alzheimer's disease with late onset; F02.83 - Dementia in other diseases classified elsewhere, unspecified severity, with mood disturbance Status: Acute DS: Summary Hospital Course Reason for hospitalization: Urinary tract infection Ground level fall Hypothyroidism Primary degenerative dementia of the Alzheimer-type, senile onset Hospital Course: 78 year old female with past medical history of dementia/Alzheimer, hypothyroidism and depression presents to the hospital from [facility] following an unwitnessed ground level fall from her wheelchair that resulted in facial lacerations. On admission patient had a slight leukocytosis and urine sample concerning for UTI. She was started on Rocephin at that time. Patient is baseline AOx1-2 per family and would become increasingly agitated with interventions or not being able to find her words. A head CT showed no intracranial hemorrhage, mass, or acute infarct, but a probable acute left nasal bone fracture. Head/c spine/facial bone CT showed fractures of the nasal bones and severe cervical spondylosis. Lacerations were repaired with steristrips and dermabond. Chest XR showed no acute cardiopulmonary process. Patients urine culture positive for pansensitive proteus mirabilis. Transitioned from rocephin to keflex. Patient discharged back to [facility] in a stable condition. Prior to discharge she did test positive for Covid. Per care coordination, the facility states that patient was positive in late May and is still able to return to the facility in isolation. Patient is to complete her antibiotics and follow up with the PCP in 1 week. Care coordination discussed with [facility] that patients family might be interested in hospice after she returns. Status at Discharge Functional status at discharge: wheelchair bound Time Spent with Patient Time attestation: Total time spent providing and/or coordinating discharge services: Time spent: Greater than 30 minutes Exam Narrative: AF HR 81 RR 21 Sp)2 96 BP 116/74 General: frail female in no acute respiratory distress who is nontoxic appearing, lying semi recumbent in bed. HEENT: Normocephalic. Vertical laceration to the center forehead with steristrips in place. Small laceration to the upper lip with steristrip in place. Does not touch the jose border. No facial asymmetry. Chest: Lungs are clear but diminished to auscultation bilaterally. No wheezes or crackles. CV: Heart was regular rate and rhythm. S1-S2. No murmurs, gallops, or rubs. Abd: Abdomen was soft. Nontender. Nondistended. Positive bowel sounds. No organomegaly or masses. Ext: No clubbing, cyanosis, or edema. 2+ DP pulses bilaterally. Neuro: Patient is alert to voice, AOx1 (self), less agitated than yesterday. Continues to mumble. DS: Data Data Completed and Pending Completed studies during hospitalization: modified barium swallow chest xr head/c spine/facial bones CT head CT Labs on day of discharge: Labs from last 24 hours 06/17/24 05:30 WBC 6.2 RBC 3.78 L Hgb 11.9 L Hct 37.3 MCV 98.7 MCH 31.5 MCHC 31.9 L RDW 13.6 Plt Count 259 MPV 9.8 Immature Gran % (Auto) 0.8 H Neut % (Auto) 60.1 Lymph % (Auto) 31.8 [place] % (Auto) 5.8 Eos % (Auto) 1.0 Baso %
[2024-06-17 14:00] VITALS: BP 116/74; PULSE 81; RESP 21; TEMP 37.3; O2SAT 96
[2024-06-17] MEDS: ACETAMINOPHEN/CODEINE (*CRX) 300/30 MG TABLET 1 TAB PO (14:06)
[2024-06-17 14:42] LABS: SARS-CoV-2 RNA PCR Positive (Negative)
[2024-06-17 19:57] VITALS: BP 113/63; PULSE 60; RESP 18; TEMP 36.4; O2SAT 92
== END 2024-06-17 20:00 | DRG 689 ==
LOC: ANHED 16:00 → ANH2MED 16:50
PROVIDERS: Student in an Organized Health Care Education/Training Program; Admitting Provider Internal Medicine; Emergency Provider Physician Assistant; PCP Family Medicine; Visit Provider Student in an Organized Health Care Education/Training Program
DX: N39.0 Urinary tract infection, site not specified (principal); U07.1 COVID-19; F02.83 Dementia in other diseases classified elsewhere, unspecified severity, with mood disturbance; G30.1 Alzheimer's disease with late onset; B96.4 Proteus (mirabilis) (morganii) as the cause of diseases classified elsewhere; S01.511A Laceration without foreign body of lip, initial encounter; S01.81XA Laceration without foreign body of other part of head, initial encounter; E03.9 Hypothyroidism, unspecified; W18.30XA Fall on same level, unspecified, initial encounter
CPT/HCPCS: 12014; 36415; 70450; 70486; 71045; 72125; 80048; 80053; 81001; 84484; 85025; 85610; 85730; 87077; 87086; 87088; 87186; 87635; 92526; 92610; 92611; 93005; 96361; 96365; 96375; 99285; A9270; G0378; J0696; J2270; J7120

== ENCOUNTER 2024-07-21 13:20 | Inpatient (IN) | payer MEDICARE, MEDICAID, SELFPAY ==
[2024-07-21] VITALS (21 sets, daily range): BP systolic 114–126; BP diastolic 60–95; PULSE 93–117; RESP 12–24; TEMP 36.1–37.1; O2SAT 95–100; BMI 19.9
--- NOTE | ~2024-07-21 | CT_ITS ---
CTA chest PE protocol Ordering provider: Richelle Almonte MD History: 78 years Female with . SOB, tachycardia, hypoxia . Comparison: None. Technique: CT angiogram chest was performed following timed intravenous injection of contrast. Thin s lice axial images and reformatted coronal images were obtained. Three dimensional reformatted images of the chest were also obtained using a [employer] workstation. . Automated exposure control and iterati ve reconstruction technique were employed. The dose-length product was 167.88 mGy-cm. 100 mL Omnipaqu e 350 was given IV. Findings: PULMONARY ARTERIES: No pulmonary embolus. VISUALIZED THORACIC INLET: Normal. MEDIASTINUM: Aorta/coronary arteries: Moderate atheromatous disease. Heart/other: The heart is not enlarged. Lymph nodes: No mediastinal or hilar adenopathy. LUNGS: No pulmonary nodules or masses. No effusions. No pneumothorax. Right lung base posteriorly minimal at electatic atelectatic changes versus pneumonia. Bronchiectatic changes are seen in the right lung bas e posteriorly with highly suggestive secretions in the bronchi.. VISUALIZED UPPER ABDOMEN: the visualized upper abdomen is normal. MUSCULOSKELETAL: Soft tissues: The superficial soft tissues are normal. Bones: Age appropriate degenerative changes of the spine. IMPRESSION: 1. No pulmonary embolism. 2. Minimal Right basilar atelectasis versus pneumonia in the right lung base posteriorly with bronch iectatic changes and secretions seen in the bronchi. Reviewed, dictated and finalized at location A. IMPRESSION: 1. No pulmonary embolism. 2. Minimal Right basilar atelectasis versus pneumonia in the right lung base p osteriorly with bronchiectatic changes and secretions seen in the bronchi.
--- NOTE | ~2024-07-21 | XR_ITS ---
XR chest 1V portable Ordering provider: Latrell Green MD History: 78 years Female with . aspiration GURGLING LOW O2 PT COGNITIVE LMT . Comparison: June 14, 2024 FINDINGS: MEDIASTINUM: The cardiac silhouette is not enlarged. LUNGS: No infiltrates, effusions or pneumothorax. OTHER: No free air under the diaphragm. IMPRESSION: No acute cardiopulmonary pathology. Reviewed, dictated and finalized at location A.
--- NOTE | 2024-07-21 13:30 | PC.NURSE ---
patient has audible gurgles- saturations low to mid 80s. suction hooked up and used patient sounds better and saturating 100%
--- NOTE | 2024-07-21 13:48 | ECG_ITS ---
Test Date: 2024-07-21 13:50:34 Measurements Intervals [place] Rate: 119 P: 59 TX: 142 QRS: 47 QRSD: 84 T: 77 QT: 318 QTc: 447 Interpretive Statements SINUS TACHYCARDIA MINIMAL Q WAVES- ANTEROLAT/INF LEADS NONSPECIFIC ST-T WAVE ABNORMALITY- HIGH LATERAL LEADS BASELINE ARTIFACT- I, II, III, AVR, AVL, AVF, V1 ABNORMAL ECG Compared to ECG 06/14/2024 12:38:00 HEART RATE HAS INCREASED Electronically Signed On 07-21-2024 15:26:37 CDT by Jean Carlos Vasquez D.O.
[2024-07-21 14:01] LABS: Basophils Absolute Auto 0.1 K/mm3 (0.0-0.1); Basophils Percent Auto 0.5 % (0.2-1.2); Eosinophils Percent Auto 0.1 % (0-4.4); Hemoglobin 13.4 g/dL (12.0-15.0); Immature Granulocyte Absolute 0.04 K/mm3 (0.00-0.031); Immature Granulocyte Percent A 0.3 % (0-0.5); Lymphocytes Absolute Auto 1.69 K/mm3 (0.9-3.2); Lymphocytes Percent Auto 13.5 % (18.3-44.2); Mean Corpuscular HGB Conc 31.9 g/dl (32-36); Mean Corpuscular Hemoglobin 30.7 pg (26-34); Mean Corpuscular Volume 96.3 fl (80-100); Mean Platelet Volume 9.7 fl (7.4-10.4); Monocytes Absolute Auto 0.8 K/mm3 (0.1-0.6); Monocytes Percent Auto 6.6 % (2.6-8.5); Neutrophils Absolute Auto 9.9 K/mm3 (1.3-6.7); Platelet Count Result 316 k/mm3 (150-375); Red Blood Count 4.36 M/mm3 (4.2-5.4); Red Cell Distribution Width 13.4 % (11.5-14.5); White Blood Count 12.5 K/mm3 (4.5-10.0)
[2024-07-21 14:13] LABS: Alanine Aminotransferase 15 U/L (6-35); Alkaline Phosphatase 63 U/L (38-126); Anion Gap 10 mmol/L (4-12); Aspartate Amino Transferase 27 U/L (14-36); Bilirubin,Total 0.9 mg/dL (0.2-1.3); Blood Urea Nitrogen 24 mg/dL (7-17); Calcium 9.2 mg/dL (8.4-10.2); Carbon Dioxide 26 mmol/L (22-30); Chloride 101 mmol/L (98-107); Estimated CRCL calculation 31 ml/min; Estimated Glomerular Filt Rate 48; Glucose 118 mg/dL (65-110); Potassium 4.2 mmol/L (3.4-5.0); Sodium 137 mmol/L (137-145)
--- NOTE | 2024-07-21 14:48 | ED.SOB ---
HPI - SOB/Dyspnea General Chief Complaint: Shortness of Breath/Dyspnea Stated Complaint: ?aspiration pna Time Seen by Provider: 07/21/24 14:09 History of Present Illness HPI Narrative: 78-year-old female with a history of Alzheimer's presenting with shortness of breath. Her is at bedside and helps with the history. States that he went to visit her at her nursing facility today and noticed that she was short of breath and gurgling a lot. EMS was called and she was found to be satting in the 80s. She was placed on nasal cannula with improvement in her hypoxia. They were concerned that she may have aspirated. Patient is A&O x1 at baseline. She currently denies complaints though she is a poor historian due to her dementia. Related Data Home Medications Medication Instructions Recorded Confirmed citalopram 10 mg tablet (Celexa) 10 mg PO DAILY 06/14/24 07/21/24 clonidine HCl 0.1 mg tablet 0.1 mg PO BID 06/14/24 07/21/24 divalproex 250 mg tablet,delayed 250 mg PO Q8H 06/14/24 07/21/24 release (Depakote) docusate sodium 100 mg tablet 100 mg PO DAILY 06/14/24 07/21/24 lactulose 10 gram/15 mL oral 15 ml PO QID PRN Constipation 06/14/24 07/21/24 solution levothyroxine 100 mcg tablet 100 mcg PO DAILY 06/14/24 07/21/24 megestrol 625 mg/5 mL (125 mg/mL) 5 ml PO DAILY 06/14/24 07/21/24 oral suspension mirtazapine 15 mg tablet 7.5 mg PO HS 06/14/24 07/21/24 acetaminophen 300 mg-codeine 30 mg 1 tablet PO Q6H PRN Moderate Pain 06/15/24 07/21/24 tablet (Scale Score 5-6) hydroxyzine HCl 50 mg tablet 50 mg PO BID 07/21/24 07/21/24 risperidone 0.5 mg tablet 0.5 mg PO DAILY 07/21/24 07/21/24 trazodone 50 mg tablet 50 mg PO PRN 07/21/24 07/21/24 trazodone 50 mg tablet 50 mg PO TID 07/21/24 07/21/24 Allergies Allergy/AdvReac Type Severity Reaction Status Date / Time aspirin Allergy Palpitation Verified 07/21/24 20:03 s azithromycin Allergy Hallucinati Verified 07/21/24 20:03 ng ciprofloxacin Allergy Unknown Verified 07/21/24 20:03 donepezil [From Aricept] Allergy Unknown Verified 07/21/24 20:03 memantine Allergy Gastrointestinal Verified 07/21/24 20:03 Upset meperidine Allergy Hallucinati Verified 07/21/24 20:03 ng pentazocine Allergy Unknown Verified 07/21/24 20:03 Review of Systems Review of Systems: ROS unobtainable: Yes unobtainable due to medical condition and other (Underlying dementia) [facility] Past Medical History Medical History Abnormality of gait Alzheimer's dementia GERD (gastroesophageal reflux disease) Hypothyroidism (acquired) MDD (major depressive disorder) Vitamin B12 deficiency Surgical History Surgical History History of cataract extraction History of spinal surgery C4, C5, C6 fusion Family History Family History Mother Alzheimer dementia Social History Social History Smoking status: Never smoker Alcohol intake: never Substance use: never Spiritual care concerns: No Exam Narrative: GENERAL: Chronically ill-appearing, no acute distress HEAD: Normocephalic, atraumatic. EYES: PERRLA and EOMI. ENT: Mucous membranes dry NECK: Supple. CHEST: Coarse breath sounds bilaterally HEART: Tachycardic, regular rhythm ABDOMEN: Soft, nontender, nondistended EXTREMITIES: Normal range of motion. No edema. SKIN: Warm, dry, no rash. NEURO: Alert and oriented x1. At baseline per her PSYCH: Normal mood and affect. Course Vital Signs Vital signs: Vital Signs Pulse Rate 116 H 07/21/24 13:17 Respiratory Rate 19 07/21/24 13:17 Pulse Oximetry 100 07/21/24 13:17 Oxygen Delivery Room Air 07/21/24 13:17 Temperature 97.7 F 07/23/24 05:42 Pulse Rate 73 07/23/24 05:42 Respiratory Rate 20 07/23/24 08:00 Blood Pressure 120/64 07/23/24 05:42 Pulse Oximetry 96 07/23/24 08:00 Oxygen Delivery Room Air 07/23/24 08:00 Oxygen Flow Rate 3 07/21/24 14:04 MDM - SOB/Dyspnea MDM Narrative Medical decision making narrative: 78-year-old female presenting with shortness of breath, hypoxia. Patient is saturating well on 3 L nasal cannula. She is tachycardic and in a 110s to 120s. Blood work with white count of 12.5. Lactic acid is elevated at 2.8. Fluids are ongoing. CTA chest shows no evidence of pulmonary embolus but they are reading a right lower lobe pneumonia. UA is concerning for UTI. Feel the patient would benefit from admission for further management. Patient and her are agreeable this plan. Rocephin and Flagyl been ordered, covering for aspiration pneumonia. Spoke with the hospitalist who agrees with admission for further management. Differential Diagnosis Differential diagnosis: Likely community acquired pneumonia and other (Hypoxia, aspiration pneumonia, UTI, dehydration) Medical Records Attestation: I reviewed the patient's medical records. Lab Data Attestation: I reviewed the patient's lab results. 07/23/24 06:42 07/23/24 06:42 Labs: Lab Results 07/21/24 07/21/24 07/21/24 Range/Units 13:52 15:06 15:43 WBC 12.5 H (4.5-10.0) K/mm3 RBC 4.36 (4.2-5.4) M/mm3 Hgb 13.4 (12.0-15.0) g/dL Hct 42.0 (37.0-47.0) % MCV 96.3 (80-100) fl MCH 30.7 (26-34) pg MCHC 31.9 L (32-36) g/dl RDW 13.4 (11.5-14.5) % Plt Count 316 (150-375) k/mm3 MPV 9.7 (7.4-10.4) fl Immature Gran % (Auto) 0.3 (0-0.5) % Neut % (Auto) 79.0 H (45.5-73.1) % Lymph % (Auto) 13.5 L (18.3-44.2) % [place] % (Auto) 6.6 (2.6-8.5) % Eos % (Auto) 0.1 (0-4.4) % Baso % (Auto) 0.5 (0.2-1.2) % Lymph # (Auto) 1.69 (0.9-3.2) K/mm3 [place] # (Auto) 0.8 H (0.1-0.6) K/mm3 Eos # (Auto) 0.0 (0-0.3) K/mm3 Baso # (Auto) 0.1 (0.0-0.1) K/mm3 Abs Immat Gran (auto) 0.04 H (0.00-0.031) K/mm3 Absolute Neuts (auto) 9.9 H (1.3-6.7) K/mm3 Absolute Nucleated RBC 0.000 (0.0-0.012) K/mm3 Nucleated RBC % 0.0 (0.0-0.2) % % Immature Plt Fraction (0.9-11.2) % PT 14.7 (11.1-14.7) Seconds INR 1.1 APTT 33.4 (22.3-36.8) Seconds Sodium 137 (137-145) mmol/L Potassium 4.2 (3.4-5.0) mmol/L Chloride 101 (98-107) mmol/L Carbon Dioxide 26 (22-30) mmol/L Anion Gap 10 (4-12) mmol/L BUN 24 H D (7-17) mg/dL Creatinine 1.10 H (0.7-1.0) mg/dL Estim Creat Clear Calc 31 ml/min Estimated GFR 48 L (59 - ) Glucose 118 H (65-110) mg/dL Lactic Acid 2.8 H (0.7-2.0) mmol/L Calcium 9.2 (8.4-10.2) mg/dL Magnesium 2.3 (1.6-2.3) mg/dL Total Bilirubin 0.9 (0.2-1.3) mg/dL AST 27 (14-36) U/L ALT 15 (6-35) U/L Alkaline Phosphatase 63 (38-126) U/L Troponin I < 0.012 (0.000-0.034) ng/mL C-Reactive Protein (<1.0) mg/dL Total Protein 7.0 (6.3-8.2) g/dL Albumin 4.0 (3.5-5.1) g/dL Lipase 35 (23-300) U/L Procalcitonin 0.5 ng/mL Urine Color Dark yellow (Yellow) Urine Appearance Clear (Clear) Urine pH 5.5 (5.0-9.0) Ur Specific [place] 1.043 H (1.001-1.035) Urine Protein 1+ H (Negative) mg/dL Urine Glucose (UA) Negative (Negative) mg/dL Urine Ketones Trace H (Negative) mg/dL Ur Blood (Man) Negative (Negative) Urine Nitrate Negative (Negative) Urine Bilirubin 1+ H (Negative) Urine Urobilinogen 1.0 (<2.0) mg/dL Add Ur Microanalysis Reviewed Leukocyte Esterase Rfl Trace H (Negative) GLORIA/UL Urine RBC 3-5 H (0-2) /hpf Urine WBC 6-10 H (0-3) /hpf Ur Squamous Epith Cells Few (Few) /hpf Urine Bacteria None seen /hpf Urine Casts 11-20 Nasal MRSA (PCR) (NOT DETECTE) Valproic Acid (50-120) ug/mL Influenza A (RT-PCR) (Negative) Influenza B (RT-PCR) (Negative) RSV (RT-PCR) (Negative) SARS-CoV-2 RNA (RT-PCR) (Negative) 07/21/24 07/21/24 07/22/24 Range/Units 18:53 21:47 04:54 WBC (4.5-10.0) K/mm3 RBC (4.2-5.4) M/mm3 Hgb (12.0-15.0) g/dL Hct (37.0-47.0) % MCV (80-100) fl MCH (26-34) pg MCHC (32-36) g/dl RDW (11.5-14.5) % Plt Count (150-375) k/mm3 MPV (7.4-10.4) fl Immature Gran % (Auto) (0-0.5) % Neut % (Auto) (45.5-73.1) % Lymph % (Auto) (18.3-44.2) % [place] % (Auto) (2.6-8.5) % Eos % (Auto) (0-4.4) % Baso % (Auto) (0.2-1.2) % Lymph # (Auto) (0.9-3.2) K/mm3 [place] # (Auto) (0.1-0.6) K/mm3 Eos # (Auto) (0-0.3) K/mm3 Baso # (Auto) (0.0-0.1) K/mm3 Abs Immat Gran (auto) (0.00-0.031) K/mm3 Absolute Neuts (auto) (1.3-6.7) K/mm3 Absolute Nucleated RBC (0.0-0.012) K/mm3 Nucleated RBC % (0.0-0.2) % % Immature Plt Fraction (0.9-11.2) % PT (11.1-14.7) Seconds INR APTT (22.3-36.8) Seconds Sodium (137-145) mmol/L Potassium (3.4-5.0) mmol/L Chloride (98-107) mmol/L Carbon Dioxide (22-30) mmol/L Anion Gap (4-12) mmol/L BUN (7-17) mg/dL Creatinine (0.7-1.0) mg/dL Estim Creat Clear Calc ml/min Estimated GFR (59 - ) Glucose (65-110) mg/dL Lactic Acid 2.9 H (0.7-2.0) mmol/L Calcium (8.4-10.2) mg/dL Magnesium (1.6-2.3) mg/dL Total Bilirubin (0.2-1.3) mg/dL AST (14-36) U/L ALT (6-35) U/L Alkaline Phosphatase (38-126) U/L Troponin I < 0.012 < 0.012 (0.000-0.034) ng/mL C-Reactive Protein (<1.0) mg/dL Total Protein (6.3-8.2) g/dL Albumin (3.5-5.1) g/dL Lipase (23-300) U/L Procalcitonin ng/mL Urine Color (Yellow) Urine Appearance (Clear) Urine pH (5.0-9.0) Ur Specific [place] (1.001-1.035) Urine Protein (Negative) mg/dL Urine Glucose (UA) (Negative) mg/dL Urine Ketones (Negative) mg/dL Ur Blood (Man) (Negative) Urine Nitrate (Negative) Urine Bilirubin (Negative) Urine Urobilinogen (<2.0) mg/dL Add Ur Microanalysis Leukocyte Esterase Rfl (Negative) GLORIA/UL Urine RBC (0-2) /hpf Urine WBC (0-3) /hpf Ur Squamous Epith Cells (Few) /hpf Urine Bacteria /hpf Urine Casts Nasal MRSA (PCR) Not detected (NOT DETECTE) Valproic Acid (50-120) ug/mL Influenza A (RT-PCR) (Negative) Influenza B (RT-PCR) (Negative) RSV (RT-PCR) (Negative) SARS-CoV-2 RNA (RT-PCR) (Negative) 07/22/24 07/22/24 07/22/24 Range/Units 04:56 06:55 08:47 WBC 9.2 (4.5-10.0) K/mm3 RBC 3.59 L (4.2-5.4) M/mm3 Hgb 11.7 L (12.0-15.0) g/dL Hct 36.3 L (37.0-47.0) % MCV 101.1 H (80-100) fl MCH 32.6 D (26-34) pg MCHC 32.2 (32-36) g/dl RDW 13.5 (11.5-14.5) % Plt Count 212 (150-375) k/mm3 MPV 11.3 H (7.4-10.4) fl Immature Gran % (Auto) 0.5 (0-0.5) % Neut % (Auto) 80.8 H (45.5-73.1) % Lymph % (Auto) 10.7 L (18.3-44.2) % [place] % (Auto) 7.3 (2.6-8.5) % Eos % (Auto) 0.4 (0-4.4) % Baso % (Auto) 0.3 (0.2-1.2) % Lymph # (Auto) 0.99 (0.9-3.2) K/mm3 [place] # (Auto) 0.7 H (0.1-0.6) K/mm3 Eos # (Auto) 0.0 (0-0.3) K/mm3 Baso # (Auto) 0.0 (0.0-0.1) K/mm3 Abs Immat Gran (auto) 0.05 H (0.00-0.031) K/mm3 Absolute Neuts (auto) 7.4 H (1.3-6.7) K/mm3 Absolute Nucleated RBC 0.000 (0.0-0.012) K/mm3 Nucleated RBC % 0.0 (0.0-0.2) % % Immature Plt Fraction 4.4 (0.9-11.2) % PT (11.1-14.7) Seconds INR APTT (22.3-36.8) Seconds Sodium 141 (137-145) mmol/L Potassium 4.9 (3.4-5.0) mmol/L Chloride 107 (98-107) mmol/L Carbon Dioxide 22 (22-30) mmol/L Anion Gap 12 (4-12) mmol/L BUN 19 H (7-17) mg/dL Creatinine 0.70 (0.7-1.0) mg/dL Estim Creat Clear Calc 49 ml/min Estimated GFR > 60 (59 - ) Glucose 109 (65-110) mg/dL Lactic Acid 4.8 H* (0.7-2.0) mmol/L Calcium 8.9 (8.4-10.2) mg/dL Magnesium (1.6-2.3) mg/dL Total Bilirubin 0.6 (0.2-1.3) mg/dL AST 28 (14-36) U/L ALT 13 (6-35) U/L Alkaline Phosphatase 52 (38-126) U/L Troponin I (0.000-0.034) ng/mL C-Reactive Protein 8.4 H (<1.0) mg/dL Total Protein 6.0 L (6.3-8.2) g/dL Albumin 3.4 L (3.5-5.1) g/dL Lipase (23-300) U/L Procalcitonin ng/mL Urine Color (Yellow) Urine Appearance (Clear) Urine pH (5.0-9.0) Ur Specific [place] (1.001-1.035) Urine Protein (Negative) mg/dL Urine Glucose (UA) (Negative) mg/dL Urine Ketones (Negative) mg/dL Ur Blood (Man) (Negative) Urine Nitrate (Negative) Urine Bilirubin (Negative) Urine Urobilinogen (<2.0) mg/dL Add Ur Microanalysis Leukocyte Esterase Rfl (Negative) GLORIA/UL Urine RBC (0-2) /hpf Urine WBC (0-3) /hpf Ur Squamous Epith Cells (Few) /hpf Urine Bacteria /hpf Urine Casts Nasal MRSA (PCR) (NOT DETECTE) Valproic Acid 47.7 L (50-120) ug/mL Influenza A (RT-PCR) Negative (Negative) Influenza B (RT-PCR) Negative (Negative) RSV (RT-PCR) Negative (Negative) SARS-CoV-2 RNA (RT-PCR) Negative (Negative) Imaging Data Radiologist's impression: ITS Impressions Chest X-Ray 07/21/24 14:34 IMPRESSION: No acute cardiopulmonary pathology. Chest CTA 07/21/24 15:45 IMPRESSION: 1. No pulmonary embolism. 2. Minimal Right basilar atelectasis versus pneumonia in the right lung base posteriorly with bronchiectatic changes and secretions seen in the bronchi. Critical Care Time Critical Care Time Critical Care Time: Yes Total Critical Care Time: 32 Discharge Plan Discharge Clinical Impression: Sepsis, Aspiration pneumonia Patient Disposition: Still a Patient Condition: Stable
[2024-07-21 15:16] LABS: Lipase 35 U/L (23-300); Magnesium 2.3 mg/dL (1.6-2.3)
[2024-07-21 15:20] LABS: Lactic Acid Reflex 2.8 mmol/L (0.7-2.0)
[2024-07-21 15:21] LABS: INR 1.1; Prothrombin Time 14.7 Seconds (11.1-14.7)
[2024-07-21 15:22] LABS: Partial Thromboplastin Time 33.4 Seconds (22.3-36.8)
[2024-07-21 15:29] LABS: Troponin I < 0.012 ng/mL (0.000-0.034)
[2024-07-21] MEDS: SODIUM CHLORIDE 0.9% IV 1,000 ML 999 ML IV CONT ×2 (15:37→18:47)
[2024-07-21 16:17] LABS: Add Urine Microscopic? YES; Appearance Urine Clear (Clear); Bacteria Urine None Seen /hpf; Bilirubin Urine 1+ (Negative); Blood Urine Negative (Negative); Color Urine Dark Yellow (Yellow); Glucose Urine UA Negative (Negative); Ketones Urine Trace mg/dL (Negative); Leukocyte Esterase Ur Trace LEU/UL (Negative); Need Manual Microscopic Reviewed; Nitrate Urine Negative (Negative); Protein Urine 1+ mg/dL (Negative); Specific Grav Ur 1.043 (1.001-1.035); Squamous Epithelial Cell Urine Few /hpf (Few); pH Urine 5.5 (5.0-9.0)
--- NOTE | 2024-07-21 16:52 | ECG_ITS ---
Test Date: 2024-07-21 17:39:16 Measurements Intervals [place] Rate: 99 P: 69 OR: 164 QRS: 59 QRSD: 90 T: 67 QT: 353 QTc: 454 Interpretive Statements SINUS RHYTHM MINIMAL Q WAVES- ANTEROLAT/INF LEADS BASELINE ARTIFACT- I, II, III, AVR, AVL, AVF, V1-V6 BORDERLINE ECG Compared to ECG 07/21/2024 13:50:34 HEART RATE HAS DECREASED Electronically Signed On 07-21-2024 20:00:21 CDT by Jean Carlos Vasquez D.O.
[2024-07-21 18:09] LABS: Reflex Lactic Acid Yes or No Add Lactic
--- NOTE | 2024-07-21 18:32 | P.HP_ITS ---
H&P: HPI History of Present Illness Date/Time: 07/21/24 18:32 Chief Complaint: Hypoxia Narrative: 78 y/o F presents here with hypoxia with PMH of Alzheimer's, hypothyroidism, depression. The patient presents here from [facility] via EMS for further evaluation of hypoxia and upper airway secretions. [facility] staff reported to EMS that patient was found gurgling yesterday. While the patient's was visiting today he noticed the gurgling and EMS was called. Initial assessment by EMS showed hypoxia, 80s on room air. Patient was placed on a non-rebreather with minimal improvement, 84-86%. Patient was given DuoNeb EN route and improved to 94%. Arrived to the emergency department 100% on NRB. Concerns were raised for aspiration, patient is on soft/minced diet. reported th at when she is given more solid food she will chew and not swallow. Patient is unable to contribute meaningfully to HPI due to advanced dementia, A&O x1 at baseline. Initial VS at presentation: HR 116, RR 19, 100% on a NRB. Now 99% on RA. ED workup showed: WBC 12.5, no anemia, normal coags, creatinine 1.1 and GFR 48 (previously 0.8 and GFR >60 on 06/17/2024), lactic acid 2.8, initial troponin negative, and UA suspicious for UTI. CXR showed no acute cardiopulmonary pathology. Chest CTA showed no PE, minimal right basilar atelectasis versus pneumonia in the right lung base posteriorly with bronchiectasis changes, and secretions seen in the bronchi. Review of Systems Review of Systems: ROS unobtainable: Yes unobtainable due to mental status (Dementia, A&O x1) [facility] Past Medical History Medical History Abnormality of gait Alzheimer's dementia GERD (gastroesophageal reflux disease) Hypothyroidism (acquired) MDD (major depressive disorder) Vitamin B12 deficiency Surgical History Surgical History History of cataract extraction History of spinal surgery C4, C5, C6 fusion Family History Family History Mother Alzheimer dementia Social History Social History Smoking status: Never smoker Alcohol intake: never Substance use: never Spiritual care concerns: No Meds Home Medications and Allergies Home Medications Medication Instructions Recorded Confirmed Type citalopram 10 mg tablet (Celexa) 10 mg PO DAILY 06/14/24 07/21/24 History clonidine HCl 0.1 mg tablet 0.1 mg PO BID 06/14/24 07/21/24 History divalproex 250 mg tablet,delayed 250 mg PO Q8H 06/14/24 07/21/24 History release (Depakote) docusate sodium 100 mg tablet 100 mg PO DAILY 06/14/24 07/21/24 History lactulose 10 gram/15 mL oral 15 ml PO QID PRN Constipation 06/14/24 07/21/24 History solution levothyroxine 100 mcg tablet 100 mcg PO DAILY 06/14/24 07/21/24 History megestrol 625 mg/5 mL (125 mg/mL) 5 ml PO DAILY 06/14/24 07/21/24 History oral suspension mirtazapine 15 mg tablet 7.5 mg PO HS 06/14/24 07/21/24 History acetaminophen 300 mg-codeine 30 mg 1 tablet PO Q6H PRN Moderate Pain 06/15/24 07/21/24 History tablet (Scale Score 5-6) cephalexin 500 mg capsule 500 mg PO Q12HR #12 caps 06/17/24 07/21/24 Rx hydroxyzine HCl 50 mg tablet 50 mg PO BID 07/21/24 07/21/24 History risperidone 0.5 mg tablet 0.5 mg PO DAILY 07/21/24 07/21/24 History trazodone 50 mg tablet 50 mg PO PRN 07/21/24 07/21/24 History trazodone 50 mg tablet 50 mg PO TID 07/21/24 07/21/24 History Allergies Allergy/AdvReac Type Severity Reaction Status Date / Time aspirin Allergy Palpitation Verified 07/21/24 20:03 s azithromycin Allergy Hallucinati Verified 07/21/24 20:03 ng ciprofloxacin Allergy Unknown Verified 07/21/24 20:03 donepezil [From Aricept] Allergy Unknown Verified 07/21/24 20:03 memantine Allergy Gastrointestinal Verified 07/21/24 20:03 Upset meperidine Allergy Hallucinati Verified 07/21/24 20:03 ng pentazocine Allergy Unknown Verified 07/21/24 20:03 Vital Signs Vital Signs - 24 hr 07/21/24 13:17 07/21/24 13:52 07/21/24 13:58 Pulse Rate 116 H 116 H Respiratory Rate 19 Blood Pressure 125/72 Pulse Oximetry 100 100 97 Oxygen Delivery Room Air Non-Rebreather Mask Oxygen Flow Rate 15 07/21/24 13:58 07/21/24 14:00 07/21/24 14:04 Pulse Rate Respiratory Rate Blood Pressure Pulse Oximetry 100 100 99 Oxygen Delivery Non-Rebreather Mask Nasal Cannula Nasal Cannula Oxygen Flow Rate 15 5 3 07/21/24 13:57 07/21/24 14:01 07/21/24 14:03 Pulse Rate 117 H 117 H 117 H Respiratory Rate 24 H 15 19 Blood Pressure 124/95 H Pulse Oximetry 97 100 99 Oxygen Delivery Oxygen Flow Rate 07/21/24 14:15 07/21/24 14:16 07/21/24 14:35 Pulse Rate 115 H 114 H 116 H Respiratory Rate 15 17 18 Blood Pressure 126/72 Pulse Oximetry 97 97 95 Oxygen Delivery Oxygen Flow Rate 07/21/24 14:45 07/21/24 14:46 07/21/24 15:00 Pulse Rate 112 H 111 H 114 H Respiratory Rate 12 13 20 Blood Pressure 119/62 114/62 Pulse Oximetry 99 97 98 Oxygen Delivery Oxygen Flow Rate 07/21/24 15:01 07/21/24 15:25 07/21/24 15:30 Pulse Rate 109 H 101 H 103 H Respiratory Rate 16 16 Blood Pressure Pulse Oximetry 99 96 97 Oxygen Delivery Oxygen Flow Rate 07/21/24 15:45 07/21/24 17:12 Pulse Rate 102 H Respiratory Rate 15 Blood Pressure Pulse Oximetry 100 99 Oxygen Delivery Room Air Oxygen Flow Rate Exam Narrative: nontoxic. clear/ Heart is fine. no edema. abdomen soft. BS in all quads. Const: General: comfortable and no acute distress Other: , female, elderly, nontoxic appearance HENMT: Face/Nose/Sinus: Normal nares present Mouth: Yes moist mucous membranes Eyes: General: appearance normal, both eyes and all related structures Sclera: sclerae normal Pupils: Equal, round and reactive pupils present EOM: EOMs intact bilaterally Resp: Effort & Inspection: normal respiratory effort Other: Course in upper lung plummer. Cardio: Rate: regular rate Rhythm: regular rhythm Other: Occasional ectopy. GI: Other: Abdomen soft, nondistended, nontender. Normoactive bowel sounds in all quadrants. Skin: General skin exam: normal color and no rashes or lesions noted Wounds: no wounds Neuro: Other: A&O x1, generalized weakness. Extrem: General: normal to inspection Psych: Other: No current agitation. H&P: Results Labs Labs: Short CBC 07/21/24 Range/Units 13:52 WBC 12.5 H (4.5-10.0) K/mm3 Hgb 13.4 (12.0-15.0) g/dL Hct 42.0 (37.0-47.0) % Plt Count 316 (150-375) k/mm3 BMP 07/21/24 13:52 Sodium 137 Potassium 4.2 Chloride 101 Carbon Dioxide 26 BUN 24 H D Creatinine 1.10 H Glucose 118 H Calcium 9.2 Cardiac Enzymes 07/21/24 Range/Units 13:52 Troponin I < 0.012 (0.000-0.034) ng/mL Liver Function 07/21/24 Range/Units 13:52 Total Bilirubin 0.9 (0.2-1.3) mg/dL AST 27 (14-36) U/L ALT 15 (6-35) U/L Alkaline Phosphatase 63 (38-126) U/L Albumin 4.0 (3.5-5.1) g/dL Urine 07/21/24 Range/Units 15:43 Urine Color Dark yellow (Yellow) Urine Appearance Clear (Clear) Urine pH 5.5 (5.0-9.0) Ur Specific [place] 1.043 H (1.001-1.035) Urine Protein 1+ H (Negative) mg/dL Urine Glucose (UA) Negative (Negative) mg/dL Assessment and Plan Assessment and plan (1) Sepsis: Qualifiers: Sepsis acute organ dysfunction status: without acute organ dysfunction Sepsis type: sepsis due to unspecified organism Qualified Code(s): A41.9 - Sepsis, unspecified organism Code(s): A41.9 - Sepsis, unspecified organism Status: Acute Assessment and Plan: - meets SIRS criteria: HR, WBC - lactic acid: 2.8 -> 2.9 - lactic elevated, procalcitonin added: 0.5 - 30 mL/kg = 1500, given 2 L bolus - suspected source: Aspiration pneumonia - started on metronidazole and ceftriaxone - blood cultures drawn on 07/21 - UA suggestive of UTI, may be contaminant (2) Hypoxia: Code(s): R09.02 - Hypoxemia Status: Acute Assessment and Plan: - CTA: 1. No pulmonary embolism. 2. Minimal Right basilar atelectasis versus pneumonia in the right lung base posteriorly with bronchiectatic changes and secretions seen in the bronchi. - CXR: No acute cardiopulmonary pathology - initial sat per EMS in the 80s on RA, no longer requiring supplemental O2 - suspect hypoxia secondary to upper airway secretions and/or pneumonia (3) Pneumonia: Qualifiers: Aspiration pneumonia type: unspecified Laterality: right Lung location: lower lobe of lung Pneumonia type: aspiration pneumonia Qualified Code(s): J69.0 - Pneumonitis due to inhalation of food and vomit Code(s): J18.9 - Pneumonia, unspecified organism Status: Acute Assessment and Plan: - imaging concerning for right basilar pneumonia - risk factors and complicating factors: [facility], patient at risk for aspiration pneumonia - started on ceftriaxone and metronidazole on 07/21 - MRSA and viral PCR added - sputum culture if obtainable - initially requiring non-rebreather, now no supplemental O2 requirement - to minimize further aspiration risk, continue minced moist diet and elevate HOB - supportive care: antipyretics, antitussives, nebs p.r.n. (4) UTI (urinary tract infection): Qualifiers: Hematuria presence: without hematuria Urinary tract infection type: acute cystitis Qualified Code(s): N30.00 - Acute cystitis without hematuria Code(s): N39.0 - Urinary tract infection, site not specified Status: Suspected Assessment and Plan: - UA: Specific gravity 1.043, 1+ protein, trace ketones, 1+ bilirubin, trace leuks, 3-5 RBC, 6-10 WBC, few epithelial cells, no bacteria - UC pending, follow - previous micro reviewed, Proteus mirabilis on 06/14/2024 resistant to ni trofurantoin - started on Ceftriaxone on 07/21 Plan Diet: Minced and moist GI Prophylaxis: Not currently indicated DVT Prophylaxis: SCDs Lines: Peripheral Code Status: DNR Quality VTE Prophylaxis VTE prophylaxis: mechanical ordered Hospitalist [facility] Advance Care Plan I have confirmed that the patient's Advanced Care Plan is present, code status is documented, or surrogate decision maker is listed in patient medical record.: Yes Medication Reconciliation I have utilized all available resources to obtain, update and review the pa tients current medications (includes all prescriptions, OTC, herbals, cannabis, and nutritional supplements).: Yes
[2024-07-21] MEDS: cefTRIAXone 2 GM/NS 100 ML 2 GM/100 ML BAG IVPB (18:47)
[2024-07-21 19:09] LABS: Lactic Acid 2.9 mmol/L (0.7-2.0)
[2024-07-21 19:22] LABS: Troponin I < 0.012 ng/mL (0.000-0.034)
--- NOTE | 2024-07-21 19:29 | ADMGEN ---
This patient, Chela Carney, was admitted to [address] [place] [address] Room 330-02. Patient/family oriented to hospital policies and general routines including ID bracelet, bed and alarms, visiting hours, pain management, procedures, bathroom and other care routines, personal items, smoking policy, room service/diet, and visiting hours. Information on how to activate the Rapid Response Team has been discussed. Patient/Family are encouraged to report perceived risks to care and to ask questions if they do not understand what they are told or what they should do.
[2024-07-21] MEDS: metroNIDAZOLE 500 MG/ISO 100ML 500 MG/100 ML BAG 100 MG IVPB (20:42)
[2024-07-21 22:01] LABS: Procalcitonin 0.5 ng/mL
[2024-07-21 22:14] LABS: Troponin I < 0.012 ng/mL (0.000-0.034)
[2024-07-22] MEDS: DIVALPROEX SODIUM DR 250 MG TABEC PO ×2 (05:03→12:44)
[2024-07-22] MEDS: metroNIDAZOLE 500 MG/ISO 100ML 500 MG/100 ML BAG 100 MG IVPB (05:03)
[2024-07-22] MEDS: traZODone HCL 50 MG TABLET PO ×3 (05:03→16:48)
[2024-07-22] MEDS: LEVOTHYROXINE SODIUM 100 MCG TABLET PO (05:03)
[2024-07-22 05:39] LABS: Influenza A QL RT-PCR Negative (Negative); Influenza B QL RT-PCR Negative (Negative); RSV RNA, RT-PCR Negative (Negative); SARS-CoV-2 RNA PCR Negative (Negative)
[2024-07-22 05:47] VITALS: BP 126/74; PULSE 75; RESP 16; TEMP 36.7; O2SAT 92
[2024-07-22 06:15] LABS: MRSA (PCR) NOT DETECTED (NOT DETECTE)
--- NOTE | 2024-07-22 06:24 | PC.NURSE ---
Pt has been coughing and sounds very wet and gurgling. Pt has been suctioned. Pt can be very combative. Pt pinches and hits when being moved or touched. Pt can not take any of her medication this morning due to not being able to swallow pills, even crushed in pudding without choking or coughing. ST [facility] requested. Pt takes medication at her facility for aggressive/violent behavior, however has not been able to swallow medication this morning.
[2024-07-22 07:06] LABS: Basophils Percent Auto 0.3 % (0.2-1.2); Eosinophils Percent Auto 0.4 % (0-4.4); Hematocrit 36.3 % (37.0-47.0); Hemoglobin 11.7 g/dL (12.0-15.0); Immature Granulocyte Absolute 0.05 K/mm3 (0.00-0.031); Immature Granulocyte Percent A 0.5 % (0-0.5); Immature Platelet Fraction Pct 4.4 % (0.9-11.2); Lymphocytes Absolute Auto 0.99 K/mm3 (0.9-3.2); Lymphocytes Percent Auto 10.7 % (18.3-44.2); Mean Corpuscular HGB Conc 32.2 g/dl (32-36); Mean Corpuscular Hemoglobin 32.6 pg (26-34); Mean Corpuscular Volume 101.1 fl (80-100); Mean Platelet Volume 11.3 fl (7.4-10.4); Monocytes Absolute Auto 0.7 K/mm3 (0.1-0.6); Monocytes Percent Auto 7.3 % (2.6-8.5); Neutrophils Absolute Auto 7.4 K/mm3 (1.3-6.7); Neutrophils Percent Auto 80.8 % (45.5-73.1); Platelet Count Result 212 k/mm3 (150-375); Red Blood Count 3.59 M/mm3 (4.2-5.4); Red Cell Distribution Width 13.5 % (11.5-14.5); White Blood Count 9.2 K/mm3 (4.5-10.0)
[2024-07-22 07:30] LABS: Alanine Aminotransferase 13 U/L (6-35); Albumin Level 3.4 g/dL (3.5-5.1); Alkaline Phosphatase 52 U/L (38-126); Anion Gap 12 mmol/L (4-12); Aspartate Amino Transferase 28 U/L (14-36); Bilirubin,Total 0.6 mg/dL (0.2-1.3); Blood Urea Nitrogen 19 mg/dL (7-17); Calcium 8.9 mg/dL (8.4-10.2); Carbon Dioxide 22 mmol/L (22-30); Chloride 107 mmol/L (98-107); Estimated CRCL calculation 49 ml/min; Estimated Glomerular Filt Rate > 60; Glucose 109 mg/dL (65-110); Potassium 4.9 mmol/L (3.4-5.0); Sodium 141 mmol/L (137-145)
[2024-07-22 09:20] LABS: Lactic Acid Reflex 4.8 mmol/L (0.7-2.0)
[2024-07-22] MEDS: PIPERACILLIN/TAZ 4.5G/NS 100ML 4.5 GM/100 ML BAG IVPB ×3 (10:12→22:16)
[2024-07-22] MEDS: SODIUM CHLORIDE 0.9% IV 1,000 ML 150 ML IV CONT ×2 (10:12→22:16)
[2024-07-22 10:13] LABS: CRP 8.4 mg/dL (<1.0)
[2024-07-22 10:20] LABS: Valproic Acid 47.7 ug/mL (50-120)
[2024-07-22] MEDS: DOXYCYCLINE 100 MG/NS 100 ML 100 MG/100 ML BAG IVPB ×2 (10:55→20:47)
--- NOTE | 2024-07-22 11:47 | PCSTNOTE ---
Please refer to the Bedside Swallow Evaluation in the EMR. Please note, silent aspiration cannot be ruled out at bedside.
[2024-07-22 11:50] LABS: Reflex Lactic Acid Yes or No Add Lactic
[2024-07-22] MEDS: risperiDONE 0.5 MG TABLET PO (12:43)
[2024-07-22] MEDS: CITALOPRAM HYDROBROMIDE 10 MG TABLET PO (12:43)
[2024-07-22 12:57] VITALS: BMI 19.9
[2024-07-22 14:00] VITALS: BP 119/59; PULSE 96; RESP 15; TEMP 36.9; O2SAT 92
--- NOTE | 2024-07-22 15:36 | P.PNIM_ITS ---
Progress Note: A&P Assessment and Plan (1) Sepsis: Qualifiers: Sepsis acute organ dysfunction status: without acute organ dysfunction Sepsis type: sepsis due to unspecified organism Qualified Code(s): A41.9 - S epsis, unspecified organism Code(s): A41.9 - Sepsis, unspecified organism Status: Acute Assessment and Plan: - meets SIRS criteria: HR, WBC - lactic acid: 2.8 -> 2.9 > 4.8. Recheck Lactic acid at 16:00. - lactic elevated, procalcitonin added: 0.5 - 30 mL/kg = 1500, given 2 L bolus, currently NS @150 ml/hr. - suspected source: Aspiration pneumonia - started on metronidazole and ceftriaxone - blood cultures drawn on 07/21 - UA suggestive of UTI, may be contaminant (2) Hypoxia: Code(s): R09.02 - Hypoxemia Status: Acute Assessment and Plan: - CTA: 1. No pulmonary embolism. 2. Minimal Right basilar atelectasis versus pneumonia in the right lung base posteriorly with bronchiectatic changes and secretions seen in the bronchi. - CXR: No acute cardiopulmonary pathology - initial sat per EMS in the 80s on RA, no longer requiring supplemental O2 - suspect hypoxia secondary to upper airway secretions and/or pneumonia (3) Pneumonia: Qualifiers: Aspiration pneumonia type: unspecified Laterality: right Lung location: lower lobe of lung Pneumonia type: aspiration pneumonia Qualified Code(s): J69.0 - Pneumonitis due to inhalation of food and vomit Code(s): J18.9 - Pneumonia, unspecified organism Status: Acute Assessment and Plan: - imaging concerning for right basilar pneumonia - risk factors and complicating factors: [place] resident, patient at risk for aspiration pneumonia - started on ceftriaxone and metronidazole on 07/21 - MRSA and viral PCR added - sputum culture if obtainable - initially requiring non-rebreather, now no supplemental O2 requirement - to minimize further aspiration risk, continue minced moist diet and elevate HOB - supportive care: antipyretics, antitussives, nebs p.r.n. (4) UTI (urinary tract infection): Qualifiers: Hematuria presence: without hematuria Urinary tract infection type: acute cystitis Qualified Code(s): N30.00 - Acute cystitis without hematuria Code(s): N39.0 - Urinary tract infection, site not specified Status: Suspected Assessment and Plan: - UA: Specific gravity 1.043, 1+ protein, trace ketones, 1+ bilirubin, trace leuks, 3-5 RBC, 6-10 WBC, few epithelial cells, no bacteria - UC pending, follow - previous micro reviewed, Proteus mirabilis on 06/14/2024 resistant to nitrofur antoin - started on Ceftriaxone on 07/21 Plan Diet: Minced and moist GI Prophylaxis: Not currently indicated DVT Prophylaxis: SCDs Lines: Peripheral Code Status: DNR Subjective Date/time seen: 07/22/24 15:36 Interval history: 78 y/o F presents here with hypoxia with PMH of Alzheimer's, hypothyroidism, depression. The patient presents here from [facility] via EMS for further evaluation of hypoxia and upper airway secretions. [facility] staff reported to EMS that patient was found gurgling yesterday. While the patient's was visiting today he noticed the gurgling and EMS was called. Initial assessment by EMS showed hypoxia, 80s on room air. Patient was placed on a non-rebreather with minimal improvement, 84-86%. Patient was given DuoNeb EN route and improved to 94%. Arrived to the emergency department 100% on NRB. Concerns were raised for aspiration, patient is on soft/minced diet. reported that when she is given more solid food she will chew and not swallow, patient was eating a pureed diet per . Patient is unable to contribute meaningfully to HPI due to advanced dementia, A&O x1 at baseline. ED workup showed: WBC 12.5, no anemia, normal coags, creatinine 1.1 and GFR 48 (previously 0.8 and GFR >60 on 06/17/2024), lactic acid 2.8, initial troponin negative, and UA suspicious for UTI. CXR showed no acute cardiopulmonary pathology. Chest CTA showed no PE, minimal right basilar atelectasis versus pneumonia in the right lung base posteriorly with bronchiectasis changes, and secretions seen in the bronchi. Swallow study today patient may have pureed diet with mild thick liquids. Lactic acid trending up 2.8>2.9> 4.8. NS @ 150 ml/hr. Antibiotics changed to Doxycycline 100 mg IVPB q 12 and Zosyn 4.5 gm IVPB Q6. Blood cultures and urine cultures pending. Review of Systems Review of Systems: ROS unobtainable: Yes unobtainable due to mental status (Dementia, A&O x1) Exam Narrative: nontoxic. clear/ Heart is fine. no edema. abdomen soft. BS in all quads. Const: General: comfortable and no acute distress Other: , female, elderly, nontoxic appearance HENMT: Face/Nose/Sinus: Normal nares present Mouth: Yes moist mucous membranes Eyes: General: appearance normal, both eyes and all related structures Sclera: sclerae normal EOM: EOMs intact bilaterally Resp: Effort & Inspection: normal respiratory effort Other: Course in upper lung plummer. Cardio: Rate: regular rate Rhythm: regular rhythm Other: Occasional ectopy. GI: Other: Abdomen soft, nondistended, nontender. Normoactive bowel sounds in all quadrants. Skin: General skin exam: normal color and no rashes or lesions noted Wounds: no wounds Neuro: Cranial nerves: Yes Equal, round and reactive pupils present Other: A&O x1, generalized weakness. Extrem: General: normal to inspection Psych: Other: No current agitation. Objective Data Vital Signs Vital Signs: Vital Signs - 24 hr 07/21/24 15:45 07/21/24 17:12 07/21/24 20:11 Temperature 98.7 F Pulse Rate 102 H Respiratory Rate 15 Blood Pressure Pulse Oximetry 100 99 Oxygen Delivery Room Air 07/21/24 21:19 07/21/24 20:00 07/22/24 05:47 Temperature 97.0 F L 98.0 F Pulse Rate 93 75 Respiratory Rate 18 16 Blood Pressure 118/60 126/74 Pulse Oximetry 99 92 Oxygen Delivery Room Air 07/22/24 08:00 Temperature Pulse Rate Respiratory Rate Blood Pressure Pulse Oximetry Oxygen Delivery Room Air Intake/Output Intake/Output: Intake & Output 07/19/24 07/20/24 07/21/24 07/22/24 23:59 23:59 23:59 23:59 Intake Total 1100 200 Output Total 100 Balance 1100 100 Meds/Results Medications: Active Medications Generic Name Dose Route Start Last Admin Trade Name Freq PRN Reason Stop Dose Admin Acetaminophen 650 mg 07/21/24 22:52 Acetaminophen 650 Mg Suppository RECTAL Q6H PRN Mild Pain (1-3)/ Fever IF NPO Acetaminophen 650 mg 07/21/24 22:52 Acetaminophen 325 Mg Tablet PO Q6H PRN Mild Pain (1-3) or Fever Acetaminophen/Codeine Phosphate 1 tab 07/21/24 22:53 Acetaminophen/Codeine (*Crx) 300/30 Mg Tablet PO Q6H PRN Moderate Pain (Scale Score 5-6) Albuterol/Ipratropium 3 ml 07/21/24 22:52 Ipratropium 0.5 Mg/Albuterol Sulfate 2.5 Mg Ampul.Neb 3 Ml INHALATION Q6HRT PRN Shortness Of Breath Or Wheezing Citalopram Hydrobromide 10 mg 07/22/24 09:00 07/22/24 12:43 Citalopram Hydrobromide 10 Mg Tablet PO 10 mg DAILY UZAIR Administration Clonidine HCl 0.1 mg 07/22/24 09:00 07/22/24 08:28 Clonidine Hcl 0.1 Mg Tablet PO Not Given BID UZAIR Divalproex Sodium 250 mg 07/21/24 22:55 07/22/24 12:[address] 250 Mg Tabec PO 250 mg Q8HR UZAIR Administration Docusate Sodium 100 mg 07/22/24 09:00 07/22/24 08:28 Docusate Sodium 100 Mg Capsule PO Not Given DAILY UZAIR Guaifenesin 600 mg 07/22/24 09:00 07/22/24 08:28 Guaifenesin 12 Hr 600 Mg Tabcr PO Not Given Q12HR UZAIR Hydroxyzine HCl 50 mg 07/22/24 09:00 07/22/24 08:28 Hydroxyzine Hcl 25 Mg Tablet PO Not Given BID UZAIR Sodium Chloride 1,000 mls @ 150 mls/hr 07/22/24 09:25 07/22/24 10:12 Normal Saline Iv IV CONT 150 mls/hr .[id number] UZAIR Administration Piperacillin Sod/Tazobactam Sod 4.5 gm in 100 mls @ 200 mls/hr 07/22/24 10:00 07/22/24 10:42 Zosyn 4.5 Gm/Ns 100 Ml IVPB Infused Q6H UZAIR Infusion Doxycycline Hyclate 100 mg in 100 mls @ 100 mls/hr 07/22/24 10:00 07/22/24 11:55 Vibramycin 100 Mg/Ns 100 Ml IVPB Infused Q12H UZAIR Infusion Lactulose 10 gm 07/21/24 22:53 Lactulose 20 Gm/30 Ml Udc PO QID PRN Constipation Levothyroxine Sodium 100 mcg 07/22/24 06:30 07/22/24 05:03 Levothyroxine Sodium 100 Mcg Tablet PO 100 mcg DAILY@0630 UZAIR Administration Megestrol Acetate 625 mg 07/22/24 09:00 07/22/24 08:28 Megestrol Acetate (*Chemo) Oral Susp 40 Mg/Ml Syr PO 08/21/24 08:59 Not Given DAILY UZAIR Mirtazapine 7.5 mg 07/22/24 21:00 Mirtazapine 7.5 Mg Tablet PO HS UZAIR Risperidone 0.5 mg 07/22/24 09:00 07/22/24 12:43 Risperidone 0.5 Mg Tablet PO 0.5 mg DAILY UZAIR Administration Trazodone HCl 50 mg 07/21/24 22:55 07/22/24 05:03 Trazodone Hcl 50 Mg Tablet PO 50 mg DAILY PRN Administration Agitation Trazodone HCl 50 mg 07/22/24 09:00 07/22/24 12:44 Trazodone Hcl 50 Mg Tablet PO 50 mg TID UZAIR Administration Radiology Results: ITS Impressions Chest X-Ray 07/21/24 14:34 IMPRESSION: No acute cardiopulmonary pathology. Chest CTA 07/21/24 15:45 IMPRESSION: 1. No pulmonary embolism. 2. Minimal Right basilar atelectasis versus pneumonia in the right lung base posteriorly with bronchiectatic changes and secretions seen in the bronchi. Labs Labs: Laboratory Results - last 24 hr 07/21/24 07/21/24 07/21/24 13:52 15:43 18:53 WBC RBC Hgb Hct MCV MCH MCHC RDW Plt Count MPV Immature Gran % (Auto) Neut % (Auto) Lymph % (Auto) [place] % (Auto) Eos % (Auto) Baso % (Auto) Lymph # (Auto) [place] # (Auto) Eos # (Auto) Baso # (Auto) Abs Immat Gran (auto) Absolute Neuts (auto) Absolute Nucleated RBC Nucleated RBC % % Immature Plt Fraction Sodium Potassium Chloride Carbon Dioxide Anion Gap BUN Creatinine Estim Creat Clear Calc Estimated GFR Glucose Lactic Acid 2.9 H Calcium Total Bilirubin AST ALT Alkaline Phosphatase Troponin I < 0.012 C-Reactive Protein Total Protein Albumin Procalcitonin 0.5 Urine Color Dark yellow Urine Appearance Clear Urine pH 5.5 Ur Specific [place] 1.043 H Urine Protein 1+ H Urine Glucose (UA) Negative Urine Ketones Trace H Ur Blood (Man) Negative Urine Nitrate Negative Urine Bilirubin 1+ H Urine Urobilinogen 1.0 Add Ur Microanalysis Reviewed Leukocyte Esterase Rfl Trace H Urine RBC 3-5 H Urine WBC 6-10 H Ur Squamous Epith Cells Few Urine Bacteria None seen Urine Casts 11-20 Nasal MRSA (PCR) Valproic Acid Influenza A (RT-PCR) Influenza B (RT-PCR) RSV (RT-PCR) SARS-CoV-2 RNA (RT-PCR) 07/21/24 07/22/24 07/22/24 21:47 04:54 04:56 WBC RBC Hgb Hct MCV MCH MCHC RDW Plt Count MPV Immature Gran % (Auto) Neut % (Auto) Lymph % (Auto) [place] % (Auto) Eos % (Auto) Baso % (Auto) Lymph # (Auto) [place] # (Auto) Eos # (Auto) Baso # (Auto) Abs Immat Gran (auto) Absolute Neuts (auto) Absolute Nucleated RBC Nucleated RBC % % Immature Plt Fraction Sodium Potassium Chloride Carbon Dioxide Anion Gap BUN Creatinine Estim Creat Clear Calc Estimated GFR Glucose Lactic Acid Calcium Total Bilirubin AST ALT Alkaline Phosphatase Troponin I < 0.012 C-Reactive Protein Total Protein Albumin Procalcitonin Urine Color Urine Appearance Urine pH Ur Specific [place] Urine Protein Urine Glucose (UA) Urine Ketones Ur Blood (Man) Urine Nitrate Urine Bilirubin Urine Urobilinogen Add Ur Microanalysis Leukocyte Esterase Rfl Urine RBC Urine WBC Ur Squamous Epith Cells Urine Bacteria Urine Casts Nasal MRSA (PCR) Not detected Valproic Acid Influenza A (RT-PCR) Negative Influenza B (RT-PCR) Negative RSV (RT-PCR) Negative SARS-CoV-2 RNA (RT-PCR) Negative 07/22/24 07/22/24 06:55 08:47 WBC 9.2 RBC 3.59 L Hgb 11.7 L Hct 36.3 L MCV 101.1 H MCH 32.6 D MCHC 32.2 RDW 13.5 Plt Count 212 MPV 11.3 H Immature Gran % (Auto) 0.5 Neut % (Auto) 80.8 H Lymph % (Auto) 10.7 L [place] % (Auto) 7.3 Eos % (Auto) 0.4 Baso % (Auto) 0.3 Lymph # (Auto) 0.99 [place] # (Auto) 0.7 H Eos # (Auto) 0.0 Baso # (Auto) 0.0 Abs Immat Gran (auto) 0.05 H Absolute Neuts (auto) 7.4 H Absolute Nucleated RBC 0.000 Nucleated RBC % 0.0 % Immature Plt Fraction 4.4 Sodium 141 Potassium 4.9 Chloride 107 Carbon Dioxide 22 Anion Gap 12 BUN 19 H Creatinine 0.70 Estim Creat Clear Calc 49 Estimated GFR > 60 Glucose 109 Lactic Acid 4.8 H* Calcium 8.9 Total Bilirubin 0.6 AST 28 ALT 13 Alkaline Phosphatase 52 Troponin I C-Reactive Protein 8.4 H Total Protein 6.0 L Albumin 3.4 L Procalcitonin Urine Color Urine Appearance Urine pH Ur Specific [place] Urine Protein Urine Glucose (UA) Urine Ketones Ur Blood (Man) Urine Nitrate Urine Bilirubin Urine Urobilinogen Add Ur Microanalysis Leukocyte Esterase Rfl Urine RBC Urine WBC Ur Squamous Epith Cells Urine Bacteria Urine Casts Nasal MRSA (PCR) Valproic Acid 47.7 L Influenza A (RT-PCR) Influenza B (RT-PCR) RSV (RT-PCR) SARS-CoV-2 RNA (RT-PCR) Quality VTE Prophylaxis VTE prophylaxis: mechanical ordered
[2024-07-22] MEDS: hydrOXYzine HCL 25 MG TABLET 50 MG PO (16:48)
[2024-07-22] MEDS: cloNIDine HCL 0.1 MG TABLET PO (16:48)
[2024-07-22 16:55] LABS: Lactic Acid Reflex 2.1 mmol/L (0.7-2.0)
[2024-07-22 21:29] VITALS: BP 105/50; PULSE 97; RESP 18; TEMP 37.1; O2SAT 96
[2024-07-22 22:24] LABS: Lactic Acid Reflex 3.4 mmol/L (0.7-2.0)
[2024-07-23 01:08] LABS: Reflex Lactic Acid Yes or No Add Lactic
[2024-07-23] MEDS: PIPERACILLIN/TAZ 4.5G/NS 100ML 4.5 GM/100 ML BAG IVPB ×4 (03:37→22:18)
[2024-07-23 05:42] VITALS: BP 120/64; PULSE 73; RESP 20; TEMP 36.5; O2SAT 96
[2024-07-23] MEDS: LEVOTHYROXINE SODIUM 100 MCG TABLET PO (05:43)
[2024-07-23] MEDS: DIVALPROEX SODIUM DR 250 MG TABEC PO ×3 (05:43→20:45)
[2024-07-23 06:50] LABS: Basophils Percent Auto 0.7 % (0.2-1.2); Eosinophils Absolute Auto 0.1 K/mm3 (0-0.3); Eosinophils Percent Auto 1.5 % (0-4.4); Hematocrit 35.7 % (37.0-47.0); Hemoglobin 11.4 g/dL (12.0-15.0); Immature Granulocyte Absolute 0.03 K/mm3 (0.00-0.031); Immature Granulocyte Percent A 0.5 % (0-0.5); Lymphocytes Absolute Auto 1.28 K/mm3 (0.9-3.2); Lymphocytes Percent Auto 21.1 % (18.3-44.2); Mean Corpuscular HGB Conc 31.9 g/dl (32-36); Mean Corpuscular Hemoglobin 31.2 pg (26-34); Mean Corpuscular Volume 97.8 fl (80-100); Mean Platelet Volume 9.5 fl (7.4-10.4); Monocytes Absolute Auto 0.4 K/mm3 (0.1-0.6); Monocytes Percent Auto 6.9 % (2.6-8.5); Neutrophils Absolute Auto 4.2 K/mm3 (1.3-6.7); Neutrophils Percent Auto 69.3 % (45.5-73.1); Platelet Count Result 241 k/mm3 (150-375); Red Blood Count 3.65 M/mm3 (4.2-5.4); Red Cell Distribution Width 13.3 % (11.5-14.5); White Blood Count 6.1 K/mm3 (4.5-10.0)
[2024-07-23 07:08] LABS: Lactic Acid Reflex 1.1 mmol/L (0.7-2.0)
[2024-07-23 07:13] LABS: Alanine Aminotransferase 11 U/L (6-35); Albumin Level 3.5 g/dL (3.5-5.1); Alkaline Phosphatase 54 U/L (38-126); Anion Gap 10 mmol/L (4-12); Aspartate Amino Transferase 24 U/L (14-36); Bilirubin,Total 0.6 mg/dL (0.2-1.3); Blood Urea Nitrogen 15 mg/dL (7-17); Calcium 8.6 mg/dL (8.4-10.2); Carbon Dioxide 21 mmol/L (22-30); Chloride 109 mmol/L (98-107); Estimated CRCL calculation 43 ml/min; Estimated Glomerular Filt Rate > 60; Glucose 94 mg/dL (65-110); Potassium 3.3 mmol/L (3.4-5.0); Sodium 140 mmol/L (137-145)
[2024-07-23 08:00] VITALS: RESP 20; O2SAT 96
[2024-07-23] MEDS: CITALOPRAM HYDROBROMIDE 10 MG TABLET PO (08:25)
[2024-07-23] MEDS: cloNIDine HCL 0.1 MG TABLET PO ×2 (08:27→16:30)
[2024-07-23] MEDS: hydrOXYzine HCL 25 MG TABLET 50 MG PO ×2 (08:28→16:30)
[2024-07-23] MEDS: risperiDONE 0.5 MG TABLET PO (08:29)
[2024-07-23] MEDS: guaiFENesin 12 HR 600 MG TABCR PO (08:30)
[2024-07-23] MEDS: traZODone HCL 50 MG TABLET PO ×4 (08:30→20:45)
[2024-07-23] MEDS: SODIUM CHLORIDE 0.9% IV 1,000 ML 150 ML IV CONT (08:55)
[2024-07-23] MEDS: DOXYCYCLINE 100 MG/NS 100 ML 100 MG/100 ML BAG IVPB ×2 (10:04→20:46)
--- NOTE | 2024-07-23 10:15 | P.PNIM_ITS ---
Progress Note: A&P Assessment and Plan (1) Sepsis: Qualifiers: Sepsis acute organ dysfunction status: without acute organ dysfunction Sepsis type: sepsis due to unspecified organism Qualified Code(s): A41.9 - S epsis, unspecified organism Code(s): A41.9 - Sepsis, unspecified organism Status: Acute Assessment and Plan: - meets SIRS criteria: HR, WBC - lactic acid: 2.8 -> 2.9 > 4.8>2.1> 3.4> 1.1. - lactic elevated, procalcitonin added: 0.5 - 30 mL/kg = 1500, given 2 L bolus, currently decreased NS @75 ml/hr. - suspected source: Aspiration pneumonia - Currently on Zosyn and Doxycycline. - blood cultures drawn on 07/21 pending. - Urine culture no growth. (2) Hypoxia: Code(s): R09.02 - Hypoxemia Status: Acute Assessment and Plan: - CTA: 1. No pulmonary embolism. 2. Minimal Right basilar atelectasis versus pneumonia in the right lung base posteriorly with bronchiectatic changes and secretions seen in the bronchi. - CXR: No acute cardiopulmonary pathology - initial sat per EMS in the 80s on RA, no longer requiring supplemental O2 - suspect hypoxia secondary to upper airway secretions and/or pneumonia (3) Pneumonia: Qualifiers: Aspiration pneumonia type: unspecified Laterality: right Lung location: lower lobe of lung Pneumonia type: aspiration pneumonia Qualified Code(s): J69.0 - Pneumonitis due to inhalation of food and vomit Code(s): J18.9 - Pneumonia, unspecified organism Status: Acute Assessment and Plan: - imaging concerning for right basilar pneumonia - risk factors and complicating factors: [place] resident, patient at risk for aspiration pneumonia - switched to Zosyn and Doxycycline on 07/22. - 07/23:WBC 6.1. Lactic acid 1.1. Temp 97.7. - MRSA and viral PCR - sputum culture if obtainable - initially requiring non-rebreather, now no supplemental O2 requirement - to minimize further aspiration risk, continue minced moist diet and elevate HOB - supportive care: antipyretics, antitussives, nebs p.r.n. (4) UTI (urinary tract infection): Qualifiers: Hematuria presence: without hematuria Urinary tract infection type: acute cystitis Qualified Code(s): N30.00 - Acute cystitis without hematuria Code(s): N39.0 - Urinary tract infection, site not specified Status: Suspected Assessment and Plan: - UA: Specific gravity 1.043, 1+ protein, trace ketones, 1+ bilirubin, trace leuks, 3-5 RBC, 6-10 WBC, few epithelial cells, no bacteria - UC showed no growth. - previous micro reviewed, Proteus mirabilis on 06/14/2024 resistant to nitrofurantoin (5) Hypokalemia: Code(s): E87.6 - Hypokalemia Status: Acute Assessment and Plan: Potassium 3.3. Give potassium chloride 40 meq PO x1. Monitor labs. Plan Diet: Pureed mild thick liquids. GI Prophylaxis: Not currently indicated DVT Prophylaxis: SCDs Lines: Peripheral Code Status: DNR Subjective Date/time seen: 07/23/24 10:15 Interval history: 78 y/o F presents here with hypoxia with PMH of Alzheimer's, hypothyroidism, depression. The patient presents here from [facility] via EMS for further evaluation of hypoxia and upper airway secretions. [facility] staff reported to EMS that patient was found gurgling yesterday. While the patient's was visiting today he noticed the gurgling and EMS was called. Initial assessment by EMS showed hypoxia, 80s on room air. Patient was placed on a non-rebreather with minimal improvement, 84-86%. Patient was given DuoNeb EN route and improved to 94%. Arrived to the emergency department 100% on NRB. Concerns were raised for aspiration, patient is on soft/minced diet. reported that when she is given more solid food she will chew and not swallow, patient was eating a pureed diet per . Patient is unable to contribute meaningfully to HPI due to advanced dementia, A&O x1 at baseline. ED workup showed: WBC 12.5, no anemia, normal coags, creatinine 1.1 and GFR 48 (previously 0.8 and GFR >60 on 06/17/2024), lactic acid 2.8, initial troponin negative, and UA suspicious for UTI. CXR showed no acute cardiopulmonary pathology. Chest CTA showed no PE, minimal right basilar atelectasis versus pneumonia in the right lung base posteriorly with bronchiectasis changes, and secretions seen in the bronchi. Swallow study showed patient may have pureed diet with mild thick liquids. Lactic acid trending up 2.8>2.9> 4.8> 2.1> 3.4> 1.1. NS @ 150 ml/hr. Antibiotics changed to Doxycycline 100 mg IVPB q 12 and Zosyn 4.5 gm IVPB Q6. Blood cultures pending. Urine cultures no growth. Review of Systems Review of Systems: ROS unobtainable: Yes unobtainable due to mental status (Dementia, A&O x1) Exam Narrative: nontoxic. clear/ Heart is fine. no edema. abdomen soft. BS in all quads. Const: General: comfortable and no acute distress Other: , female, elderly, nontoxic appearance HENMT: Face/Nose/Sinus: Normal nares present Mouth: Yes moist mucous membranes Eyes: General: appearance normal, both eyes and all related structures Sclera: sclerae normal EOM: EOMs intact bilaterally Resp: Effort & Inspection: normal respiratory effort Other: Course in upper lung plummer. Cardio: Rate: regular rate Rhythm: regular rhythm Other: Occasional ectopy. GI: Other: Abdomen soft, nondistended, nontender. Normoactive bowel sounds in all quadrants. Skin: General skin exam: normal color and no rashes or lesions noted Wounds: no wounds Neuro: Other: A&O x1, generalized weakness. Extrem: General: normal to inspection Psych: Other: No current agitation. Objective Data Vital Signs Vital Signs: Vital Signs - 24 hr 07/22/24 14:00 07/22/24 21:29 07/22/24 20:00 Temperature 98.5 F 98.8 F Pulse Rate 96 97 Respiratory Rate 15 18 Blood Pressure 119/59 L 105/50 L Pulse Oximetry 92 96 Oxygen Delivery Room Air 07/23/24 05:42 07/23/24 08:00 Temperature 97.7 F Pulse Rate 73 Respiratory Rate 20 20 Blood Pressure 120/64 Pulse Oximetry 96 96 Oxygen Delivery Room Air Intake/Output Intake/Output: Intake & Output 07/20/24 07/21/24 07/22/24 07/23/24 23:59 23:59 23:59 23:59 Intake Total 1100 1520 1000 Output Total 100 200 Balance 1100 1420 800 Meds/Results Medications: Active Medications Generic Name Dose Route Start Last Admin Trade Name Freq PRN Reason Stop Dose Admin Acetaminophen 650 mg 07/21/24 22:52 Acetaminophen 650 Mg Suppository RECTAL Q6H PRN Mild Pain (1-3)/ Fever IF NPO Acetaminophen 650 mg 07/21/24 22:52 Acetaminophen 325 Mg Tablet PO Q6H PRN Mild Pain (1-3) or Fever Acetaminophen/Codeine Phosphate 1 tab 07/21/24 22:53 Acetaminophen/Codeine (*Crx) 300/30 Mg Tablet PO Q6H PRN Moderate Pain (Scale Score 5-6) Albuterol/Ipratropium 3 ml 07/21/24 22:52 Ipratropium 0.5 Mg/Albuterol Sulfate 2.5 Mg Ampul.Neb 3 Ml INHALATION Q6HRT PRN Shortness Of Breath Or Wheezing Citalopram Hydrobromide 10 mg 07/22/24 09:00 07/23/24 08:25 Citalopram Hydrobromide 10 Mg Tablet PO 10 mg DAILY UZAIR Administration Clonidine HCl 0.1 mg 07/22/24 09:00 07/23/24 08:27 Clonidine Hcl 0.1 Mg Tablet PO 0.1 mg BID UZAIR Administration Divalproex Sodium 250 mg 07/21/24 22:55 07/23/24 05:[address] 250 Mg Tabec PO 250 mg Q8HR UZAIR Administration Docusate Sodium 100 mg 07/22/24 09:00 07/23/24 08:28 Docusate Sodium 100 Mg Capsule PO Not Given DAILY UZAIR Guaifenesin 600 mg 07/22/24 09:00 07/23/24 08:30 Guaifenesin 12 Hr 600 Mg Tabcr PO 600 mg Q12HR UZAIR Administration Hydroxyzine HCl 50 mg 07/22/24 09:00 07/23/24 08:28 Hydroxyzine Hcl 25 Mg Tablet PO 50 mg BID UZAIR Administration Sodium Chloride 1,000 mls @ 75 mls/hr 07/22/24 09:25 07/23/24 08:55 Normal Saline Iv IV CONT 150 mls/hr .[id number] UZAIR Administration Piperacillin Sod/Tazobactam Sod 4.5 gm in 100 mls @ 200 mls/hr 07/22/24 10:00 07/23/24 03:37 Zosyn 4.5 Gm/Ns 100 Ml IVPB 200 mls/hr Q6H UZAIR Administration Doxycycline Hyclate 100 mg in 100 mls @ 100 mls/hr 07/22/24 10:00 07/23/24 10:04 Vibramycin 100 Mg/Ns 100 Ml IVPB 100 mls/hr Q12H UZAIR Administration Lactulose 10 gm 07/21/24 22:53 Lactulose 20 Gm/30 Ml Udc PO QID PRN Constipation Levothyroxine Sodium 100 mcg 07/22/24 06:30 07/23/24 05:43 Levothyroxine Sodium 100 Mcg Tablet PO 100 mcg DAILY@0630 UZAIR Administration Megestrol Acetate 625 mg 07/22/24 09:00 07/22/24 08:28 Megestrol Acetate (*Chemo) Oral Susp 40 Mg/Ml Syr PO 08/21/24 08:59 Not Given DAILY UZAIR Mirtazapine 7.5 mg 07/22/24 21:00 07/22/24 20:15 Mirtazapine 7.5 Mg Tablet PO Not Given HS UZAIR Risperidone 0.5 mg 07/22/24 09:00 07/23/24 08:29 Risperidone 0.5 Mg Tablet PO 0.5 mg DAILY UZAIR Administration Trazodone HCl 50 mg 07/21/24 22:55 07/22/24 05:03 Trazodone Hcl 50 Mg Tablet PO 50 mg DAILY PRN Administration Agitation Trazodone HCl 50 mg 07/22/24 09:00 07/23/24 08:30 Trazodone Hcl 50 Mg Tablet PO 50 mg TID UZAIR Administration Radiology Results: ITS Impressions Chest X-Ray 07/21/24 14:34 IMPRESSION: No acute cardiopulmonary pathology. Chest CTA 07/21/24 15:45 IMPRESSION: 1. No pulmonary embolism. 2. Minimal Right basilar atelectasis versus pneumonia in the right lung base posteriorly with bronchiectatic changes and secretions seen in the bronchi. Labs Labs: Laboratory Results - last 24 hr 07/22/24 07/22/24 07/22/24 06:55 16:32 22:01 WBC RBC Hgb Hct MCV MCH MCHC RDW Plt Count MPV Immature Gran % (Auto) Neut % (Auto) Lymph % (Auto) [place] % (Auto) Eos % (Auto) Baso % (Auto) Lymph # (Auto) [place] # (Auto) Eos # (Auto) Baso # (Auto) Abs Immat Gran (auto) Absolute Neuts (auto) Absolute Nucleated RBC Nucleated RBC % Sodium Potassium Chloride Carbon Dioxide Anion Gap BUN Creatinine Estim Creat Clear Calc Estimated GFR Glucose Lactic Acid 2.1 H 3.4 H Calcium Total Bilirubin AST ALT Alkaline Phosphatase Total Protein Albumin Valproic Acid 47.7 L 07/23/24 06:42 WBC 6.1 RBC 3.65 L Hgb 11.4 L Hct 35.7 L MCV 97.8 MCH 31.2 MCHC 31.9 L RDW 13.3 Plt Count 241 MPV 9.5 Immature Gran % (Auto) 0.5 Neut % (Auto) 69.3 Lymph % (Auto) 21.1 [place] % (Auto) 6.9 Eos % (Auto) 1.5 Baso % (Auto) 0.7 Lymph # (Auto) 1.28 [place] # (Auto) 0.4 Eos # (Auto) 0.1 Baso # (Auto) 0.0 Abs Immat Gran (auto) 0.03 Absolute Neuts (auto) 4.2 Absolute Nucleated RBC 0.000 Nucleated RBC % 0.0 Sodium 140 Potassium 3.3 L Chloride 109 H Carbon Dioxide 21 L Anion Gap 10 BUN 15 Creatinine 0.80 Estim Creat Clear Calc 43 Estimated GFR > 60 Glucose 94 Lactic Acid 1.1 Calcium 8.6 Total Bilirubin 0.6 AST 24 ALT 11 Alkaline Phosphatase 54 Total Protein 7.0 Albumin 3.5 Valproic Acid Quality VTE Prophylaxis VTE prophylaxis: mechanical ordered
[2024-07-23] MEDS: POTASSIUM CHLORIDE 20 MEQ ER TABLET 40 MEQ PO (10:16)
[2024-07-23] MEDS: MEGESTROL ACETATE (*CHEMO) ORAL SUSP 40 MG/ML SYR 625 MG PO (10:18)
[2024-07-23 14:00] VITALS: BP 125/58; PULSE 86; RESP 16; TEMP 36.6; O2SAT 90
[2024-07-23] MEDS: MIRTAZAPINE 7.5 MG TABLET PO (20:45)
[2024-07-23] MEDS: SODIUM CHLORIDE 0.9% IV 1,000 ML 75 ML IV CONT (20:51)
[2024-07-23 21:20] VITALS: BP 106/74; PULSE 79; RESP 18; TEMP 36.3; O2SAT 98
[2024-07-24] MEDS: PIPERACILLIN/TAZ 4.5G/NS 100ML 4.5 GM/100 ML BAG IVPB ×2 (04:41→10:04)
[2024-07-24] MEDS: LEVOTHYROXINE SODIUM 100 MCG TABLET PO (05:02)
[2024-07-24] MEDS: ACETAMINOPHEN/CODEINE (*CRX) 300/30 MG TABLET 1 TAB PO (05:02)
[2024-07-24] MEDS: DIVALPROEX SODIUM DR 250 MG TABEC PO (05:02)
[2024-07-24 05:29] VITALS: BP 128/68; PULSE 72; RESP 18; TEMP 36.6; O2SAT 96
[2024-07-24] MEDS: hydrOXYzine HCL 25 MG TABLET 50 MG PO ×2 (08:40→17:33)
[2024-07-24] MEDS: risperiDONE 0.5 MG TABLET PO (08:41)
[2024-07-24] MEDS: cloNIDine HCL 0.1 MG TABLET PO ×2 (08:41→17:15)
[2024-07-24] MEDS: CITALOPRAM HYDROBROMIDE 10 MG TABLET PO (08:41)
[2024-07-24 08:42] LABS: Alanine Aminotransferase 15 U/L (6-35); Albumin Level 2.9 g/dL (3.5-5.1); Alkaline Phosphatase 45 U/L (38-126); Anion Gap 11 mmol/L (4-12); Aspartate Amino Transferase 40 U/L (14-36); Bilirubin,Total 0.5 mg/dL (0.2-1.3); Blood Urea Nitrogen 12 mg/dL (7-17); Calcium 8.2 mg/dL (8.4-10.2); Carbon Dioxide 18 mmol/L (22-30); Chloride 110 mmol/L (98-107); Estimated CRCL calculation 43 ml/min; Estimated Glomerular Filt Rate > 60; Glucose 76 mg/dL (65-110); Potassium 4.8 mmol/L (3.4-5.0); Sodium 139 mmol/L (137-145)
[2024-07-24 08:45] LABS: Basophils Absolute Auto 0.1 K/mm3 (0.0-0.1); Basophils Percent Auto 0.8 % (0.2-1.2); Eosinophils Absolute Auto 0.1 K/mm3 (0-0.3); Eosinophils Percent Auto 1.4 % (0-4.4); Hemoglobin 10.7 g/dL (12.0-15.0); Immature Granulocyte Absolute 0.04 K/mm3 (0.00-0.031); Immature Granulocyte Percent A 0.7 % (0-0.5); Lymphocytes Absolute Auto 1.98 K/mm3 (0.9-3.2); Lymphocytes Percent Auto 33.5 % (18.3-44.2); Mean Corpuscular HGB Conc 31.5 g/dl (32-36); Mean Corpuscular Hemoglobin 31.4 pg (26-34); Mean Corpuscular Volume 99.7 fl (80-100); Mean Platelet Volume 9.9 fl (7.4-10.4); Monocytes Absolute Auto 0.6 K/mm3 (0.1-0.6); Neutrophils Absolute Auto 3.2 K/mm3 (1.3-6.7); Neutrophils Percent Auto 53.6 % (45.5-73.1); Platelet Count Result 231 k/mm3 (150-375); Red Blood Count 3.41 M/mm3 (4.2-5.4); Red Cell Distribution Width 13.1 % (11.5-14.5); White Blood Count 5.9 K/mm3 (4.5-10.0)
[2024-07-24] MEDS: MEGESTROL ACETATE (*CHEMO) ORAL SUSP 40 MG/ML SYR 625 MG PO (08:48)
[2024-07-24] MEDS: traZODone HCL 50 MG TABLET PO ×2 (08:56→17:34)
[2024-07-24 09:21] VITALS: O2SAT 97
[2024-07-24] MEDS: SODIUM CHLORIDE 0.9% IV 1,000 ML 75 ML IV CONT ×2 (10:11→14:56)
[2024-07-24] MEDS: DOXYCYCLINE 100 MG/NS 100 ML 100 MG/100 ML BAG IVPB (11:00)
--- NOTE | 2024-07-24 11:51 | P.PNIM_ITS ---
Progress Note: A&P Assessment and Plan (1) Sepsis: Code(s): A41.9 - Sepsis, unspecified organism Status: Acute Assessment and Plan: - lactic acid: 2.8 -> 2.9 > 4.8>2.1> 3.4> 1.1. - lactic elevated, procalcitonin added: 0.5 - 30 mL/kg = 1500, given 2 L bolus, currently decreased NS @75 ml/hr. - suspected source: Aspiration pneumonia - Change antibiotics to Cefdinir 300 mg Q12 x 9 doses and Doxycycline Hyclate 100 mg PO q 12 x 5 doses. - blood cultures drawn on 07/21 pending. - Urine culture no growth. (2) Hypoxia: Code(s): R09.02 - Hypoxemia Status: Acute Assessment and Plan: - CTA: 1. No pulmonary embolism. 2. Minimal Right basilar atelectasis versus pneumonia in the right lung base posteriorly with bronchiectatic changes and secretions seen in the bronchi. - CXR: No acute cardiopulmonary pathology - initial sat per EMS in the 80s on RA, no longer requiring supplemental O2 - suspect hypoxia secondary to upper airway secretions and/or pneumonia (3) Pneumonia: Qualifiers: Aspiration pneumonia type: unspecified Laterality: right Lung location: lower lobe of lung Pneumonia type: aspiration pneumonia Qualified Code(s): J69.0 - Pneumonitis due to inhalation of food and vomit Code(s): J18.9 - Pneumonia, unspecified organism Status: Acute Assessment and Plan: - imaging concerning for right basilar pneumonia - risk factors and complicating factors: [place] resident, patient at risk for aspiration pneumonia - switched to Zosyn and Doxycycline on 07/22. - 07/24 antibiotics switched to: Cefdinir 300 mg Q12 x 9 doses and Doxycycline Hyclate 100 mg PO q 12 x 5 doses. - 07/24:WBC 5.9. Temp 97.8. - Lactic acid 1.1. - MRSA and viral PCR - sputum culture if obtainable - initially requiring non-rebreather, now no supplemental O2 requirement - to minimize further aspiration risk, Pureed mild thick liquids. Ensure compact. and elevate HOB - supportive care: antipyretics, antitussives, nebs p.r.n. (4) UTI (urinary tract infection): Qualifiers: Hematuria presence: without hematuria Urinary tract infection type: acute cystitis Qualified Code(s): N30.00 - Acute cystitis without hematuria Code(s): N39.0 - Urinary tract infection, site not specified Status: Suspected Assessment and Plan: - UA: Specific gravity 1.043, 1+ protein, trace ketones, 1+ bilirubin, trace leuks, 3-5 RBC, 6-10 WBC, few epithelial cells, no bacteria - UC showed no growth. - previous micro reviewed, Proteus mirabilis on 06/14/2024 resistant to nitrofurantoin. (5) Hypokalemia: Code(s): E87.6 - Hypokalemia Status: Acute Assessment and Plan: Potassium improved to 4.8 after receiving potassium chloride 40 meq PO x1 yesterday for a potassium 3.3. Monitor labs. Plan Diet: Pureed mild thick liquids. Ensure compact. GI Prophylaxis: Not currently indicated DVT Prophylaxis: SCDs Lines: Peripheral Code Status: DNR Subjective Date/time seen: 07/24/24 11:51 Interval history: Interval history: 78 y/o F presents here with hypoxia with PMH of Alzheimer's, hypothyroidism, depression. The patient presents here from [facility] via EMS for further evaluation of hypoxia and upper airway secretions. [facility] staff reported to EMS that patient was found gurgling yesterday. While the patient's was visiting today he noticed the gurgling and EMS was called. Initial assessment by EMS showed hypoxia, 80s on room air. Patient was placed on a non-rebreather with minimal improvement, 84-86%. Patient was given DuoNeb EN route and improved to 94%. Arrived to the emergency department 100% on NRB. Concerns were raised for aspiration, patient is on soft/minced diet. reported that when she is given more solid food she will chew and not swallow, patient was eating a pureed diet per . Patient is unable to contribute meaningfully to HPI due to advanced dementia, A&O x1 at baseline. ED workup showed: WBC 12.5, no anemia, normal coags, creatinine 1.1 and GFR 48 (previously 0.8 and GFR >60 on 06/17/2024), lactic acid 2.8, initial troponin negative, and UA suspicious for UTI. CXR showed no acute cardiopulmonary pathology. Chest CTA showed no PE, minimal right basilar atelectasis versus pneumonia in the right lung base posteriorly with bronchiectasis changes, and secretions seen in the bronchi. Swallow study showed patient may have pureed diet with mild thick liquids. Lactic acid trending up 2.8>2.9> 4.8> 2.1> 3.4> 1.1. NS @ 150 ml/hr. Antibiotics changed to Doxycycline 100 mg IVPB q 12 and Zosyn 4.5 gm IVPB Q6. Blood cultures pending. Urine cultures no growth. Review of Systems Review of Systems: ROS unobtainable: Yes unobtainable due to mental status (Dementia, A&O x1) Exam Narrative: nontoxic. clear/ Heart is fine. no edema. abdomen soft. BS in all quads. Const: General: comfortable and no acute distress Other: , female, elderly, nontoxic appearance HENMT: Face/Nose/Sinus: Normal nares present Mouth: Yes moist mucous membranes Eyes: General: appearance normal, both eyes and all related structures Sclera: sclerae normal EOM: EOMs intact bilaterally Resp: Effort & Inspection: normal respiratory effort Other: Course in upper lung plummer. Cardio: Rate: regular rate Rhythm: regular rhythm Other: Occasional ectopy. GI: Other: Abdomen soft, nondistended, nontender. Normoactive bowel sounds in all quadrants. Skin: General skin exam: normal color and no rashes or lesions noted Wounds: no wounds Neuro: Cranial nerves: Yes Equal, round and reactive pupils present Other: A&O x1, generalized weakness. Extrem: General: normal to inspection Psych: Other: No current agitation. Objective Data Vital Signs Vital Signs: Vital Signs - 24 hr 07/23/24 14:00 07/23/24 21:20 07/23/24 20:00 Temperature 97.8 F 97.3 F L Pulse Rate 86 79 Respiratory Rate 16 18 Blood Pressure 125/58 L 106/74 Pulse Oximetry 90 98 Oxygen Delivery Room Air Fraction of Inspired Oxygen 07/24/24 05:29 07/24/24 09:21 Temperature 97.8 F Pulse Rate 72 Respiratory Rate 18 Blood Pressure 128/68 Pulse Oximetry 96 97 Oxygen Delivery Room Air Fraction of Inspired Oxygen 21 Intake/Output Intake/Output: Intake & Output 07/21/24 07/22/24 07/23/24 07/24/24 23:59 23:59 23:59 23:59 Intake Total 1100 1520 2660.0 220 Output Total 100 1000 100 Balance 1100 1420 1660.0 120 Meds/Results Medications: Active Medications Generic Name Dose Route Start Last Admin Trade Name Freq PRN Reason Stop Dose Admin Acetaminophen 650 mg 07/21/24 22:52 Acetaminophen 650 Mg Suppository RECTAL Q6H PRN Mild Pain (1-3)/ Fever IF NPO Acetaminophen 650 mg 07/21/24 22:52 Acetaminophen 325 Mg Tablet PO Q6H PRN Mild Pain (1-3) or Fever Acetaminophen/Codeine Phosphate 1 tab 07/21/24 22:53 07/24/24 05:02 Acetaminophen/Codeine (*Crx) 300/30 Mg Tablet PO 1 tab Q6H PRN Administration Moderate Pain (Scale Score 5-6) Albuterol/Ipratropium 3 ml 07/21/24 22:52 Ipratropium 0.5 Mg/Albuterol Sulfate 2.5 Mg Ampul.Neb 3 Ml INHALATION Q6HRT PRN Shortness Of Breath Or Wheezing Citalopram Hydrobromide 10 mg 07/22/24 09:00 07/24/24 08:41 Citalopram Hydrobromide 10 Mg Tablet PO 10 mg DAILY UZAIR Administration Clonidine HCl 0.1 mg 07/22/24 09:00 07/24/24 08:41 Clonidine Hcl 0.1 Mg Tablet PO 0.1 mg BID UZAIR Administration Divalproex Sodium 250 mg 07/21/24 22:55 07/24/24 05:[address] 250 Mg Tabec PO 250 mg Q8HR UZAIR Administration Docusate Sodium 100 mg 07/22/24 09:00 07/23/24 08:28 Docusate Sodium 100 Mg Capsule PO Not Given DAILY UZAIR Guaifenesin 600 mg 07/22/24 09:00 07/23/24 20:46 Guaifenesin 12 Hr 600 Mg Tabcr PO Not Given Q12HR UZAIR Hydroxyzine HCl 50 mg 07/22/24 09:00 07/24/24 08:40 Hydroxyzine Hcl 25 Mg Tablet PO 50 mg BID UZAIR Administration Sodium Chloride 1,000 mls @ 75 mls/hr 07/22/24 09:25 07/23/24 20:51 Normal Saline Iv IV CONT 75 mls/hr .[id number] UZAIR Administration Piperacillin Sod/Tazobactam Sod 4.5 gm in 100 mls @ 200 mls/hr 07/22/24 10:00 07/24/24 10:04 Zosyn 4.5 Gm/Ns 100 Ml IVPB 200 mls/hr Q6H UZAIR Administration Doxycycline Hyclate 100 mg in 100 mls @ 100 mls/hr 07/22/24 10:00 07/24/24 11:00 Vibramycin 100 Mg/Ns 100 Ml IVPB 07/26/24 22:59 100 mls/hr Q12H UZAIR Administration Lactulose 10 gm 07/21/24 22:53 Lactulose 20 Gm/30 Ml Udc PO QID PRN Constipation Levothyroxine Sodium 100 mcg 07/22/24 06:30 07/24/24 05:02 Levothyroxine Sodium 100 Mcg Tablet PO 100 mcg DAILY@0630 UZAIR Administration Megestrol Acetate 625 mg 07/22/24 09:00 07/24/24 08:48 Megestrol Acetate (*Chemo) Oral Susp 40 Mg/Ml Syr PO 08/21/24 08:59 625 mg DAILY UZAIR Administration Mirtazapine 7.5 mg 07/22/24 21:00 07/23/24 20:45 Mirtazapine 7.5 Mg Tablet PO 7.5 mg HS UZAIR Administration Risperidone 0.5 mg 07/22/24 09:00 07/24/24 08:41 Risperidone 0.5 Mg Tablet PO 0.5 mg DAILY UZAIR Administration Trazodone HCl 50 mg 07/21/24 22:55 07/24/24 08:56 Trazodone Hcl 50 Mg Tablet PO 50 mg DAILY PRN Administration Agitation Trazodone HCl 50 mg 07/22/24 09:00 07/23/24 20:45 Trazodone Hcl 50 Mg Tablet PO 50 mg TID UZAIR Administration Radiology Results: ITS Impressions Chest X-Ray 07/21/24 14:34 IMPRESSION: No acute cardiopulmonary pathology. Chest CTA 07/21/24 15:45 IMPRESSION: 1. No pulmonary embolism. 2. Minimal Right basilar atelectasis versus pneumonia in the right lung base posteriorly with bronchiectatic changes and secretions seen in the bronchi. Labs Labs: Laboratory Results - last 24 hr 07/24/24 08:21 WBC 5.9 RBC 3.41 L Hgb 10.7 L Hct 34.0 L MCV 99.7 MCH 31.4 MCHC 31.5 L RDW 13.1 Plt Count 231 MPV 9.9 Immature Gran % (Auto) 0.7 H Neut % (Auto) 53.6 Lymph % (Auto) 33.5 [place] % (Auto) 10.0 H Eos % (Auto) 1.4 Baso % (Auto) 0.8 Lymph # (Auto) 1.98 [place] # (Auto) 0.6 Eos # (Auto) 0.1 Baso # (Auto) 0.1 Abs Immat Gran (auto) 0.04 H Absolute Neuts (auto) 3.2 Absolute Nucleated RBC 0.000 Nucleated RBC % 0.0 Sodium 139 Potassium 4.8 Chloride 110 H Carbon Dioxide 18 L Anion Gap 11 BUN 12 Creatinine 0.80 Estim Creat Clear Calc 43 Estimated GFR > 60 Glucose 76 Calcium 8.2 L Total Bilirubin 0.5 AST 40 H ALT 15 Alkaline Phosphatase 45 Total Protein 6.0 L Albumin 2.9 L Quality VTE Prophylaxis VTE prophylaxis: mechanical ordered
[2024-07-24 14:00] VITALS: BP 131/77; PULSE 70; RESP 20; TEMP 36.3; O2SAT 99
[2024-07-24] MEDS: DIVALPROEX SODIUM SPRINKLE 125 MG CAP.DR 250 MG PO ×2 (14:47→20:47)
[2024-07-24] MEDS: CEFDINIR 300 MG CAPSULE PO (18:40)
[2024-07-24] MEDS: guaiFENesin 12 HR 600 MG TABCR PO (20:47)
[2024-07-24] MEDS: ACETAMINOPHEN 325 MG TABLET 650 MG PO (20:47)
[2024-07-24] MEDS: MIRTAZAPINE 7.5 MG TABLET PO (20:47)
[2024-07-24] MEDS: DOXYCYCLINE HYCLATE 100 MG TABLET PO (20:47)
[2024-07-24 20:55] VITALS: BP 106/58; PULSE 75; RESP 20; TEMP 36.4; O2SAT 99
[2024-07-25 06:00] VITALS: BP 133/65; PULSE 70; RESP 20; TEMP 36.5; O2SAT 100
[2024-07-25] MEDS: ACETAMINOPHEN 325 MG TABLET 650 MG PO ×2 (06:47→14:04)
[2024-07-25] MEDS: DIVALPROEX SODIUM SPRINKLE 125 MG CAP.DR 250 MG PO ×2 (06:47→14:09)
[2024-07-25] MEDS: LEVOTHYROXINE SODIUM 100 MCG TABLET PO (06:47)
[2024-07-25] MEDS: CEFDINIR 300 MG CAPSULE PO (08:40)
[2024-07-25] MEDS: hydrOXYzine HCL 25 MG TABLET 50 MG PO (08:40)
[2024-07-25] MEDS: risperiDONE 0.5 MG TABLET PO (08:41)
[2024-07-25] MEDS: CITALOPRAM HYDROBROMIDE 10 MG TABLET PO (08:41)
[2024-07-25] MEDS: MEGESTROL ACETATE (*CHEMO) ORAL SUSP 40 MG/ML SYR 625 MG PO (08:41)
[2024-07-25] MEDS: traZODone HCL 50 MG TABLET PO ×2 (08:41→14:06)
[2024-07-25] MEDS: cloNIDine HCL 0.1 MG TABLET PO (08:41)
[2024-07-25] MEDS: DOXYCYCLINE HYCLATE 100 MG TABLET PO (08:41)
--- NOTE | 2024-07-25 10:45 | PM.DS ---
DS: Admitting Diagnosis Discharge Date 07/25/2024 Admitting Diagnosis shortness of breath DS: Discharge Diagnosis Discharge Diagnosis (1) Sepsis: Code(s): A41.9 - Sepsis, unspecified organism Status: Acute (2) Hypoxia: Code(s): R09.02 - Hypoxemia Status: Acute (3) Pneumonia: Qualifiers: Aspiration pneumonia type: unspecified Laterality: right Lung location: lower lobe of lung Pneumonia type: aspiration pneumonia Qualified Code(s): J69.0 - Pneumonitis due to inhalation of food and vomit Code(s): J18.9 - Pneumonia, unspecified organism Status: Acute Plan aspiration pneumonia DS: Summary Hospital Course Hospital Course: 78 y/o F presents here with hypoxia with PMH of Alzheimer's, hypothyroidism, depression. The patient presents here from [facility] via EMS for further evaluation of hypoxia and upper airway secretions. long term staff reported to EMS that patient was found gurgling yesterday. While the patient's was visiting today he noticed the gurgling and EMS was called. Initial assessment by EMS showed hypoxia, 80s on room air. Patient was placed on a non-rebreather with minimal improvement, 84-86%. Patient was given DuoNeb EN route and improved to 94%. Arrived to the emergency department 100% on NRB. Concerns were raised for aspiration, patient is on soft/minced diet. reported that when she is given more solid food she will chew and not swallow, patient was eating a pureed diet per . Patient is unable to contribute meaningfully to HPI due to advanced dementia, A&O x1 at baseline. ED workup showed: WBC 12.5, no anemia, normal coags, creatinine 1.1 and GFR 48 (previously 0.8 and GFR >60 on 06/17/2024), lactic acid 2.8, initial troponin negative, and UA suspicious for UTI. CXR showed no acute cardiopulmonary pathology. Chest CTA showed no PE, minimal right basilar atelectasis versus pneumonia in the right lung base posteriorly with bronchiectasis changes, and secretions seen in the bronchi. Swallow study showed patient may have pureed diet with mild thick liquids. lactic acid: 2.8 -> 2.9 > 4.8>2.1> 3.4> 1.1. procalcitonin added: 0.5. IV Fluids and antibiotics given. - suspected source: Aspiration pneumonia. Patient responded well to IV Zosyn and Doxycycline. Patient transitioned on 07/24 to Cefdinir 300 mg Q12 x 9 doses and Doxycycline Hyclate 100 mg PO q 12 x 5 doses. - blood cultures drawn on 07/21 pending. - Urine culture no growth. Status at Discharge Functional status at discharge: wheelchair bound Overall status at discharge: patient is progressing back to baseline Time Spent with Patient Time attestation: Total time spent providing and/or coordinating discharge services: Time spent: Greater than 30 minutes Exam Narrative: nontoxic. clear/ Heart is fine. no edema. abdomen soft. BS in all quads. Const: General: comfortable and no acute distress Other: , female, elderly, nontoxic appearance HENMT: Face/Nose/Sinus: Normal nares present Mouth: Yes moist mucous membranes Eyes: General: appearance normal, both eyes and all related structures Sclera: sclerae normal EOM: EOMs intact bilaterally Resp: Effort & Inspection: normal respiratory effort Other: Course in upper lung plummer. Cardio: Rate: regular rate Rhythm: regular rhythm Other: Occasional ectopy. GI: Other: Abdomen soft, nondistended, nontender. Normoactive bowel sounds in all quadrants. Skin: General skin exam: normal color and no rashes or lesions noted Wounds: no wounds Neuro: Other: A&O x1, generalized weakness. Extrem: General: normal to inspection Psych: Other: No current agitation. DS: Data Data Completed and Pending Labs on day of discharge: Preliminary micro results at discharge 07/21/24 21:47 Blood Culture - Preliminary Blood 07/21/24 21:47 Blood Culture - Preliminary Blood Discharge Plan Discharge Attending physician on discharge: Cirilo Lopez Discharging Clinician: Cora Linares Anticipated Discharge Date/Time: 07/25/24 10:45 Patient Disposition: SNF Activity: may shower Diet: other - see discharge instructions Discharge Instructions: - Ensure compact supplement twice daily - Pureed diet with mild thick liquids. Sitting upright for meals and requires assistance. - Complete all doses of antibiotics. - Check a CBC and CMP in one week. Patient Instructions: Pain Management (DC), Aspiration Pneumonia (DC), Sepsis (DC) Stand Alone Forms: General Discharge Information Follow-up/Referrals: Doreen Cartagena MD [Primary Care Provider] - 1 Week Discharge Medications: New cefdinir 300 mg Capsule 300 mg PO Q12HR Qty: 7 0RF doxycycline hyclate 100 mg Tablet 100 mg PO Q12HR Qty: 3 0RF Continued citalopram [Celexa] 10 mg tablet 10 mg PO DAILY clonidine HCl 0.1 mg tablet 0.1 mg PO BID levothyroxine 100 mcg tablet 100 mcg PO DAILY mirtazapine 15 mg tablet 7.5 mg PO HS docusate sodium 100 mg Tablet 100 mg PO DAILY lactulose 10 gram/15 mL Solution 15 ml PO QID PRN (Reason: Constipation) megestrol 625 mg/5 mL (125 mg/mL) suspension 5 ml PO DAILY divalproex [Depakote] 250 mg tablet,delayed release (DR/EC) 250 mg PO Q8H acetaminophen-codeine 300-30 mg tablet 1 tablet PO Q6H PRN (Reason: Moderate Pain (Scale Score 5-6)) trazodone 50 mg tablet 50 mg PO TID hydroxyzine HCl 50 mg tablet 50 mg PO BID risperidone 0.5 mg tablet 0.5 mg PO DAILY trazodone 50 mg tablet 50 mg PO PRN Patient Comments: PRN for violent behavior Discontinued cephalexin 500 mg Capsule 500 mg PO Q12HR Qty: 12 0RF Date of admission: 07/22/24 09:39 Primary Care Provider: Doreen Cartagena Admitting Provider: Janes Valadez Attending physician on admission: Janes Valadez Condition: Stable Hospitalist MIPS Heart Failure (Exclusion) Patient has history of Heart Transplant or Left Ventricular Assistive Device?: No IF YES, STOP HERE Heart Failure (Qualifier) Patient has current or prior documentation of LVEF less than or equal to 40%, or mod/servere depressed LVSF?: No IF NO, STOP HERE
[2024-07-25 14:00] VITALS: BP 103/49; PULSE 71; RESP 18; TEMP 37.2; O2SAT 100
--- NOTE | 2024-07-30 10:22 | PC.NURSE ---
Blood cx are negative.
== END 2024-07-25 15:55 | DRG 871 ==
LOC: ANHED 14:22 → ANH3MEDSUR 18:50
PROVIDERS: Emergency Medicine; Student in an Organized Health Care Education/Training Program; Admitting Provider Internal Medicine; Emergency Provider Emergency Medicine; PCP Family Medicine; Visit Provider Nurse Practitioner Family
DX: A41.9 Sepsis, unspecified organism (principal); J69.0 Pneumonitis due to inhalation of food and vomit; N39.0 Urinary tract infection, site not specified; G30.9 Alzheimer's disease, unspecified; F02.80 Dementia in other diseases classified elsewhere, unspecified severity, without behavioral disturbance, psychotic disturbance, mood disturbance, and anxiety; E03.9 Hypothyroidism, unspecified; E53.8 Deficiency of other specified B group vitamins; F32.A Depression, unspecified; K21.9 Gastro-esophageal reflux disease without esophagitis; Z66 Do not resuscitate; Z99.3 Dependence on wheelchair
CPT/HCPCS: 36415; 71045; 71275; 80053; 80164; 81001; 83605; 83690; 83735; 84145; 84484; 85025; 85055; 85610; 85730; 86140; 87040; 87086; 87637; 87641; 92610; 93005; 96361; 96365; 96375; 99285; A9270; G0378; J0696; J1836; J2543; J7030; Q9967

== ENCOUNTER 2024-09-20 23:50 | Emergency (ER) | payer MEDICARE, MEDICAID, SELFPAY ==
--- NOTE | ~2024-09-20 | XR_ITS ---
EXAMINATION: XR chest 1V portable DATE: 09/21/2024 00:39 INDICATION: Shortness of breath. TECHNIQUE: A single frontal view of the chest was obtained. COMPARISON: Chest single view 07/21/2024, chest CT 09/21/2024 FINDINGS: There is mild scarring at the lung apices. No pleural effusion or pneumothorax. The heart s ize is normal. IMPRESSION: 1. Stable mild scarring at the lung apices. Reviewed, dictated and finalized at location A. [employer] CHIEF
--- NOTE | ~2024-09-20 | CT_ITS ---
EXAMINATION: CTA chest PE protocol DATE: 09/21/2024 02:37 INDICATION: Shortness of breath. Pulmonary embolus. TECHNIQUE: Computed tomography angiography (CTA) of the chest was performed with 100 mL Omnipaque-350 intravenous contrast timed to evaluate the pulmonary arteries. Coronal maximum intensity projection 3D-reconstructions were created by the technologist. Automated exposure control and iterative reconst ruction technique were employed. The dose-length product was 162.62 mGy-cm. COMPARISON: Chest single view 09/21/2024 FINDINGS: There is mild scarring at the lung apices. There is mild atelectasis bilaterally. No pleura l effusion. The heart size is normal. There are coronary artery calcifications. No pericardial effusi on. There is no pulmonary embolus. There is thoracic kyphosis and mild spondylosis. There is an old h ealed fracture of the sternum. IMPRESSION: 1. No pulmonary embolus. Reviewed, dictated and finalized at location A. [employer] SERVICE TELLER IMPRESSION: 1. No pulmonary embolus.
[2024-09-20 23:55] VITALS: BP 111/63; PULSE 88; RESP 13; TEMP 36.1; O2SAT 97
--- NOTE | 2024-09-20 23:58 | ECG_ITS ---
Test Date: 2024-09-21 00:27:43 Measurements Intervals [place] Rate: 81 P: 77 ID: [id number] QRS: 53 QRSD: 88 T: 72 QT: 374 QTc: 436 Interpretive Statements SINUS RHYTHM MINIMAL Q WAVES- ANTEROLAT/INF LEADS BASELINE ARTIFACT- I, II, III, AVR, AVL, AVF, V1-V6 BORDERLINE ECG Compared to ECG 07/21/2024 17:39:16 No significant changes Electronically Signed On 09-21-2024 07:09:10 COLD ROLLING MACHINE SETTER by Jean Carlos Vasquez D.O.
--- NOTE | 2024-09-21 01:02 | PC.NURSE ---
family member requested female staff to straight cath patient. patient is non- verbal, patient is not able to make any request known. Per family staff will have female nurse obtain urine.
[2024-09-21 01:03] LABS: Alveolar/Arterial O2 Gradient 37.1 mmHg; Base Excess ABG -0.2 mEq/l (+/-2.0); Fractional Inspired Oxygen 21 %; HCO3 ABG 21.5 mEq/l (22.0-26.0); Oxygen Content ABG 20.1 %vol (16.0-22.0); Oxygen Saturation ABG 96.8 % (95.0-100.0); Oxyhemoglobin 96.3 % THb (90.0-100.0); PCO2 ABG 27.7 mmHg (35.0-45.0); PO2 ABG 79.5 mmHg (80.0-100.0); PO2 FiO2 Ratio Arterial Blood 3.79 %; Total Hemoglobin 14.8 g/dL (12.0-18.0)
[2024-09-21 01:06] LABS: Modified Allen's Test Pass; Site Drawn LEFT RADIAL; pH ABG 7.507 (7.350-7.450)
[2024-09-21 01:06] LABS: Basophils Absolute Auto 0.1 K/mm3 (0.0-0.1); Basophils Percent Auto 0.5 % (0.2-1.2); Eosinophils Percent Auto 0.2 % (0-4.4); Hemoglobin 16.4 g/dL (12.0-15.0); Immature Granulocyte Absolute 0.05 K/mm3 (0.00-0.031); Immature Granulocyte Percent A 0.5 % (0-0.5); Lymphocytes Absolute Auto 2.21 K/mm3 (0.9-3.2); Lymphocytes Percent Auto 21.6 % (18.3-44.2); Mean Corpuscular HGB Conc 32.2 g/dl (32-36); Mean Corpuscular Hemoglobin 30.6 pg (26-34); Mean Corpuscular Volume 95.1 fl (80-100); Mean Platelet Volume 10.4 fl (7.4-10.4); Monocytes Absolute Auto 0.6 K/mm3 (0.1-0.6); Monocytes Percent Auto 5.4 % (2.6-8.5); Neutrophils Absolute Auto 7.3 K/mm3 (1.3-6.7); Neutrophils Percent Auto 71.8 % (45.5-73.1); Platelet Count Result 485 k/mm3 (150-375); Red Blood Count 5.36 M/mm3 (4.2-5.4); Red Cell Distribution Width 13.3 % (11.5-14.5); White Blood Count 10.2 K/mm3 (4.5-10.0)
[2024-09-21 01:07] LABS: Device ROOM AIR
[2024-09-21 01:17] LABS: Prothrombin Time 13.1 Seconds (11.1-14.7)
[2024-09-21 01:18] LABS: Partial Thromboplastin Time 34.5 Seconds (22.3-36.8)
[2024-09-21 01:29] LABS: Alanine Aminotransferase 12 U/L (6-35); Albumin Level 4.6 g/dL (3.5-5.1); Alkaline Phosphatase 87 U/L (38-126); Anion Gap 11 mmol/L (4-12); Aspartate Amino Transferase 25 U/L (14-36); Bilirubin,Total 0.9 mg/dL (0.2-1.3); Blood Urea Nitrogen 10 mg/dL (7-17); Calcium 10.1 mg/dL (8.4-10.2); Carbon Dioxide 27 mmol/L (22-30); Chloride 102 mmol/L (98-107); Estimated CRCL calculation 32 ml/min; Estimated Glomerular Filt Rate 54; Glucose 117 mg/dL (65-110); Lipase 68 U/L (23-300); Magnesium 2.3 mg/dL (1.6-2.3); Potassium 4.4 mmol/L (3.4-5.0); Sodium 140 mmol/L (137-145)
--- NOTE | 2024-09-21 01:35 | ED_ITS ---
HPI - General Adult General Chief complaint: Altered Mental Status Stated complaint: lethargic Time Seen by Provider: 09/20/24 23:55 History of Present Illness HPI narrative: patient 79-year-old female who presents emergency department chief complaint of altered mental status. Patient resident [facility] normally is somewhat combative due to her dementia the patient has had aspiration pneumonia before in the past and the facility noticed that she was less responsive than normal the patient has a DNR that is in place are Related Data Home Medications Medication Instructions Recorded Confirmed citalopram 10 mg tablet (Celexa) 10 mg PO DAILY 06/14/24 08/12/24 clonidine HCl 0.1 mg tablet 0.1 mg PO BID 06/14/24 08/12/24 divalproex 250 mg tablet,delayed 250 mg PO Q8H 06/14/24 08/12/24 release (Depakote) docusate sodium 100 mg tablet 100 mg PO DAILY 06/14/24 08/12/24 lactulose 10 gram/15 mL oral 15 ml PO QID PRN Constipation 06/14/24 08/12/24 solution levothyroxine 100 mcg tablet 100 mcg PO DAILY 06/14/24 08/12/24 megestrol 625 mg/5 mL (125 mg/mL) 5 ml PO DAILY 06/14/24 08/12/24 oral suspension mirtazapine 15 mg tablet 7.5 mg PO HS 06/14/24 08/12/24 acetaminophen 300 mg-codeine 30 mg 1 tablet PO Q6H PRN Moderate Pain 06/15/24 08/12/24 tablet (Scale Score 5-6) hydroxyzine HCl 50 mg tablet 50 mg PO BID 07/21/24 08/12/24 risperidone 0.5 mg tablet 0.5 mg PO DAILY 07/21/24 08/12/24 trazodone 50 mg tablet 50 mg PO PRN 07/21/24 08/12/24 trazodone 50 mg tablet 50 mg PO TID 07/21/24 08/12/24 Allergies Allergy/AdvReac Type Severity Reaction Status Date / Time aspirin Allergy Palpitation Verified 07/21/24 20:03 s azithromycin Allergy Hallucinati Verified 07/21/24 20:03 ng ciprofloxacin Allergy Unknown Verified 07/21/24 20:03 donepezil [From Aricept] Allergy Unknown Verified 07/21/24 20:03 memantine Allergy Gastrointestinal Verified 07/21/24 20:03 Upset meperidine Allergy Hallucinati Verified 07/21/24 20:03 ng pentazocine Allergy Unknown Verified 07/21/24 20:03 Review of Systems Review of Systems: A 10 system review of systems was completed on the patient and is negative except for what is stated in the HPI. Nursing and ancillary documentation was reviewed. [facility] Past Medical History Medical History Abnormality of gait Alzheimer's dementia GERD (gastroesophageal reflux disease) Hypothyroidism (acquired) MDD (major depressive disorder) Vitamin B12 deficiency Surgical History Surgical History History of cataract extraction History of spinal surgery C4, C5, C6 fusion Family History Family History Mother Alzheimer dementia Social History Social History Smoking status: Never smoker Alcohol intake: never Substance use: never Spiritual care concerns: No Exam Narrative: GENERAL: ill-appearing, thin, and in no acute distress. HEAD: Normocephalic, atraumatic. EYES: PERRLA and EOMI. ENT: Nares clear, no rhinorrhea or epistaxis. Mucous membranes moist. NECK: Supple. CHEST: Clear to auscultation. No respiratory distress. HEART: Regular rate and rhythm. No murmur heard. Normal peripheral pulses. ABDOMEN: Soft, nontender, nondistended, normal active bowel sounds. EXTREMITIES: Normal range of motion. No edema. SKIN: Warm, dry, no rash. NEURO: No focal deficits. opens eyes to painful stimuli. PSYCH: Normal mood and affect. Course Vital Signs Vital signs: Vital Signs Temperature 36.1 C L 09/20/24 23:55 Pulse Rate 88 09/20/24 23:55 Respiratory Rate 13 09/20/24 23:55 Blood Pressure 111/63 09/20/24 23:55 Pulse Oximetry 97 09/20/24 23:55 Temperature 36.1 C L 09/20/24 23:55 Pulse Rate 88 09/20/24 23:55 Respiratory Rate 13 09/20/24 23:55 Blood Pressure 111/63 09/20/24 23:55 Pulse Oximetry 97 09/20/24 23:55 Medical Decision Making MDM Narrative Medical decision making narrative: Differential diagnosis includes pneumonia, aspiration, respiratory failure the patient is DNR and the family would like to maintain comfort measures. The chest x-ray showed no evidence of pneumonia PE study was obtained that showed no evidence of pulmonary embolism. Patient is negative on troponin in discussion with the family they would like the [facility] Vital Signs Vital Signs: Vital Signs Temperature 36.1 C L 09/20/24 23:55 Pulse Rate 88 09/20/24 23:55 Respiratory Rate 13 09/20/24 23:55 Blood Pressure 111/63 09/20/24 23:55 Pulse Oximetry 97 09/20/24 23:55 Temperature 36.1 C L 09/20/24 23:55 Pulse Rate 88 09/20/24 23:55 Respiratory Rate 13 09/20/24 23:55 Blood Pressure 111/63 09/20/24 23:55 Pulse Oximetry 97 09/20/24 23:55 Lab Data 09/21/24 00:41 09/21/24 00:41 Labs: Lab Results 09/21/24 09/21/24 09/21/24 Range/Units 00:40 00:41 00:42 WBC 10.2 H (4.5-10.0) K/mm3 RBC 5.36 (4.2-5.4) M/mm3 Hgb 16.4 H D (12.0-15.0) g/dL Hct 51.0 H (37.0-47.0) % MCV 95.1 (80-100) fl MCH 30.6 (26-34) pg MCHC 32.2 (32-36) g/dl RDW 13.3 (11.5-14.5) % Plt Count 485 H D (150-375) k/mm3 MPV 10.4 (7.4-10.4) fl Immature Gran % (Auto) 0.5 (0-0.5) % Neut % (Auto) 71.8 (45.5-73.1) % Lymph % (Auto) 21.6 (18.3-44.2) % [place] % (Auto) 5.4 (2.6-8.5) % Eos % (Auto) 0.2 (0-4.4) % Baso % (Auto) 0.5 (0.2-1.2) % Lymph # (Auto) 2.21 (0.9-3.2) K/mm3 [place] # (Auto) 0.6 (0.1-0.6) K/mm3 Eos # (Auto) 0.0 (0-0.3) K/mm3 Baso # (Auto) 0.1 (0.0-0.1) K/mm3 Abs Immat Gran (auto) 0.05 H (0.00-0.031) K/mm3 Absolute Neuts (auto) 7.3 H (1.3-6.7) K/mm3 Absolute Nucleated RBC 0.000 (0.0-0.012) K/mm3 Nucleated RBC % 0.0 (0.0-0.2) % PT (11.1-14.7) Seconds INR APTT (22.3-36.8) Seconds Sodium 140 (137-145) mmol/L Potassium 4.4 (3.4-5.0) mmol/L Chloride 102 (98-107) mmol/L Carbon Dioxide 27 (22-30) mmol/L Anion Gap 11 (4-12) mmol/L BUN 10 (7-17) mg/dL Creatinine 1.00 (0.7-1.0) mg/dL Estim Creat Clear Calc 32 ml/min Estimated GFR 54 L (59 - ) Glucose 117 H (65-110) mg/dL Lactic Acid 3.1 H (0.7-2.0) mmol/L Calcium 10.1 (8.4-10.2) mg/dL Magnesium 2.3 (1.6-2.3) mg/dL Total Bilirubin 0.9 (0.2-1.3) mg/dL AST 25 (14-36) U/L ALT 12 (6-35) U/L Alkaline Phosphatase 87 (38-126) U/L Troponin I < 0.012 (0.000-0.034) ng/mL NT-Pro-B Natriuret Pep 242 H (19.9-100) pg/mL Total Protein 9.0 H (6.3-8.2) g/dL Albumin 4.6 (3.5-5.1) g/dL Lipase 68 (23-300) U/L Procalcitonin 0.1 ng/mL Urine Color (Yellow) Urine Appearance (Clear) Urine pH (5.0-9.0) Ur Specific [place] (1.001-1.035) Urine Protein (Negative) mg/dL Urine Glucose (UA) (Negative) mg/dL Urine Ketones (Negative) mg/dL Ur Blood (Man) (Negative) Urine Nitrate (Negative) Urine Bilirubin (Negative) Urine Urobilinogen (<2.0) mg/dL Leukocyte Esterase Rfl (Negative) GLORIA/UL Urine RBC (0-2) /hpf Urine WBC (0-3) /hpf Ur Squamous Epith Cells (Few) /hpf Urine Bacteria /hpf Urine Casts Influenza A (RT-PCR) Negative (Negative) Influenza B (RT-PCR) Negative (Negative) RSV (RT-PCR) Negative (Negative) SARS-CoV-2 RNA (RT-PCR) Negative (Negative) 09/21/24 09/21/24 Range/Units 00:53 01:27 WBC (4.5-10.0) K/mm3 RBC (4.2-5.4) M/mm3 Hgb (12.0-15.0) g/dL Hct (37.0-47.0) % MCV (80-100) fl MCH (26-34) pg MCHC (32-36) g/dl RDW (11.5-14.5) % Plt Count (150-375) k/mm3 MPV (7.4-10.4) fl Immature Gran % (Auto) (0-0.5) % Neut % (Auto) (45.5-73.1) % Lymph % (Auto) (18.3-44.2) % [place] % (Auto) (2.6-8.5) % Eos % (Auto) (0-4.4) % Baso % (Auto) (0.2-1.2) % Lymph # (Auto) (0.9-3.2) K/mm3 [place] # (Auto) (0.1-0.6) K/mm3 Eos # (Auto) (0-0.3) K/mm3 Baso # (Auto) (0.0-0.1) K/mm3 Abs Immat Gran (auto) (0.00-0.031) K/mm3 Absolute Neuts (auto) (1.3-6.7) K/mm3 Absolute Nucleated RBC (0.0-0.012) K/mm3 Nucleated RBC % (0.0-0.2) % PT 13.1 (11.1-14.7) Seconds INR 1.0 APTT 34.5 (22.3-36.8) Seconds Sodium (137-145) mmol/L Potassium (3.4-5.0) mmol/L Chloride (98-107) mmol/L Carbon Dioxide (22-30) mmol/L Anion Gap (4-12) mmol/L BUN (7-17) mg/dL Creatinine (0.7-1.0) mg/dL Estim Creat Clear Calc ml/min Estimated GFR (59 - ) Glucose (65-110) mg/dL Lactic Acid (0.7-2.0) mmol/L Calcium (8.4-10.2) mg/dL Magnesium (1.6-2.3) mg/dL Total Bilirubin (0.2-1.3) mg/dL AST (14-36) U/L ALT (6-35) U/L Alkaline Phosphatase (38-126) U/L Troponin I (0.000-0.034) ng/mL NT-Pro-B Natriuret Pep (19.9-100) pg/mL Total Protein (6.3-8.2) g/dL Albumin (3.5-5.1) g/dL Lipase (23-300) U/L Procalcitonin ng/mL Urine Color Yellow (Yellow) Urine Appearance Clear (Clear) Urine pH 6.0 (5.0-9.0) Ur Specific [place] 1.008 (1.001-1.035) Urine Protein Negative (Negative) mg/dL Urine Glucose (UA) Negative (Negative) mg/dL Urine Ketones Negative (Negative) mg/dL Ur Blood (Man) Negative (Negative) Urine Nitrate Negative (Negative) Urine Bilirubin Negative (Negative) Urine Urobilinogen 0.2 (<2.0) mg/dL Leukocyte Esterase Rfl Trace H (Negative) GLORIA/UL Urine RBC 0-2 (0-2) /hpf Urine WBC 0-5 (0-3) /hpf Ur Squamous Epith Cells None seen (Few) /hpf Urine Bacteria 1+ H /hpf Urine Casts 0-2 Influenza A (RT-PCR) (Negative) Influenza B (RT-PCR) (Negative) RSV (RT-PCR) (Negative) SARS-CoV-2 RNA (RT-PCR) (Negative) ABG Data ABG results: 09/21/24 00:47 Puncture Site Left radial ABG pH 7.507 H* ABG pCO2 27.7 L ABG pO2 79.5 L ABG PO2/FiO2 Ratio 3.79 ABG HCO3 21.5 L ABG O2 Saturation 96.8 ABG O2 Content 20.1 ABG Base Excess -0.2 A-a Gradient 37.1 Oxyhemoglobin 96.3 Total Hemoglobin 14.8 O2 Delivery Device Room air O2 Liters/Min Not Reportable FiO2 21 Discharge Plan Discharge Clinical Impression: Generalized weakness Patient Disposition: Home, Self-Care Condition: Stable Instructions: Antibiotic Form, General Patient Instructions, Weakness (ED) Prescriptions: No Action citalopram [Celexa] 10 mg tablet 10 mg PO DAILY clonidine HCl 0.1 mg tablet 0.1 mg PO BID levothyroxine 100 mcg tablet 100 mcg PO DAILY mirtazapine 15 mg tablet 7.5 mg PO HS docusate sodium 100 mg Tablet 100 mg PO DAILY lactulose 10 gram/15 mL Solution 15 ml PO QID PRN (Reason: Constipation) megestrol 625 mg/5 mL (125 mg/mL) suspension 5 ml PO DAILY divalproex [Depakote] 250 mg tablet,delayed release (DR/EC) 250 mg PO Q8H acetaminophen-codeine 300-30 mg tablet 1 tablet PO Q6H PRN (Reason: Moderate Pain (Scale Score 5-6)) trazodone 50 mg tablet 50 mg PO TID hydroxyzine HCl 50 mg tablet 50 mg PO BID risperidone 0.5 mg tablet 0.5 mg PO DAILY trazodone 50 mg tablet 50 mg PO PRN Patient Comments: PRN for violent behavior cefdinir 300 mg Capsule 300 mg PO Q12HR Qty: 7 0RF doxycycline hyclate 100 mg Tablet 100 mg PO Q12HR Qty: 3 0RF Follow-up/Referrals: Doreen Cartagena MD [Primary Care Provider] - Time of Disposition: 05:46
[2024-09-21 01:37] LABS: Add Urine Microscopic? YES; Appearance Urine Clear (Clear); Bacteria Urine 1+ /hpf; Bilirubin Urine Negative (Negative); Blood Urine Negative (Negative); Color Urine Yellow (Yellow); Glucose Urine UA Negative (Negative); Ketones Urine Negative (Negative); Leukocyte Esterase Ur Trace LEU/UL (Negative); Nitrate Urine Negative (Negative); Non Pathogenic Casts 0-2; Protein Urine Negative (Negative); RBC Urine 0-2 /hpf (0-2); Specific Grav Ur 1.008 (1.001-1.035); Squamous Epithelial Cell Urine None Seen /hpf (Few); Urobilinogen Urine 0.2 mg/dL (<2.0); WBC Urine 0-5 /hpf (0-3)
[2024-09-21 01:41] LABS: NT Pro B Type Natriuretic Pept 242 pg/mL (19.9-100); Troponin I < 0.012 ng/mL (0.000-0.034)
[2024-09-21 01:42] LABS: Influenza A QL RT-PCR Negative (Negative); Influenza B QL RT-PCR Negative (Negative); RSV RNA, RT-PCR Negative (Negative); SARS-CoV-2 RNA PCR Negative (Negative)
[2024-09-21 01:45] LABS: Lactic Acid Reflex 3.1 mmol/L (0.7-2.0)
[2024-09-21 01:51] LABS: Procalcitonin 0.1 ng/mL
--- NOTE | 2024-09-21 02:26 | PC.NURSE ---
sirisha harrell called for update. same given. Sirisha harrell would like to know if the patient is going to be admitted and dx.
[2024-09-21 04:37] LABS: Reflex Lactic Acid Yes or No Add Lactic
--- NOTE | 2024-09-21 06:34 | PC.NURSE ---
MD requesting RN to call back to confirm recommendation on Acetadote and Fluids.
--- NOTE | 2024-09-21 06:51 | PC.NURSE ---
called sirisha harrell to inform pt will be coming back to pr.
[2024-09-21 10:26] VITALS: BP 120/62; PULSE 83; RESP 18; O2SAT 100
[2024-09-21 11:51] VITALS: BP 116/78
== END 2024-09-21 11:52 ==
PROVIDERS: Emergency Provider Emergency Medicine; PCP Family Medicine
DX: R53.1 Weakness (principal); Z20.822 Contact with and (suspected) exposure to COVID-19; G30.9 Alzheimer's disease, unspecified; F02.80 Dementia in other diseases classified elsewhere, unspecified severity, without behavioral disturbance, psychotic disturbance, mood disturbance, and anxiety; E03.9 Hypothyroidism, unspecified; E53.8 Deficiency of other specified B group vitamins; K21.9 Gastro-esophageal reflux disease without esophagitis; F32.9 Major depressive disorder, single episode, unspecified; Z66 Do not resuscitate; Z98.1 Arthrodesis status; Z98.49 Cataract extraction status, unspecified eye; Z79.899 Other long term (current) drug therapy
CPT/HCPCS: 36415; 36600; 71045; 71275; 80053; 81001; 82805; 83605; 83690; 83735; 83880; 84145; 84484; 85018; 85025; 85610; 85730; 87040; 87086; 87637; 93005; 99284; Q9967